=== PATIENT | male | born 1970 | race Caucasian/White ===

== ENCOUNTER 2023-10-01 08:25 | Outpatient (OUT) | payer BC, SELFPAY ==
--- NOTE | 2023-10-01 08:30 | CT_ITS ---
[address] [address] Patient Name: BRITTON HADLEY MRN: [id number] date: 1970 Sex: M Assigned Patient Location: CT Current Patient Location: LAB Accession/Order Number: [id number] Exam Date: 10/01/2023 08:47 Report Date: 10/01/2023 10:13 At the request of: KP DURAND Procedure: CT chest wo con EXAMINATION: CT chest wo con HISTORY: Lung Nodule R91.1 COMPARISON: 09/19/2021 TECHNIQUE: Multi-planar CT images were created with IV contrast. Axial, Coronal, and Sagittal images. Dose reduction techniques were achieved by using automated exposure control and/or adjustment of mA and/or kV according to patient size and/or use of iterative reconstruction technique. FINDINGS: LUNGS: Scattered subcentimeter pulmonary nodules the largest is semisolid in the right lower lobe measuring 5 mm axial image #56 PLEURA: No mass, effusion, or pneumothorax. VASCULATURE: No abnormality. ENE: No mass or adenopathy. MEDIASTINUM: No mass or adenopathy. CARDIAC: No enlargement, pericardial thickening, or significant calcification. AORTA: No aneurysm or dissection. CHEST WALL: No mass or axillary adenopathy. BONES: No bone lesion or fracture. LIMITED ABDOMEN: Mild groundglass attenuation the central mesentery, nonspecific OTHER: Negative. CT/CT chest wo con IMPRESSION: Scattered subcentimeter pulmonary nodules measuring up to 5 mm, nonspecific Lung-RADS 2 FINDINGS: Solid nodule(s): <6 mm or new <4 mm; part solid nodule(s) <6 mm total diameter on baseline screening; nonsolid nodule(s) (GGN): <20 mm or greater than/equal to 20 mm and unchanged or slowly growing; category 3 or 4 nodules unchanged for greater than/equal to 3 months. MANAGEMENT: Continue annual screening with LDCT in 12 months. Electronically authenticated by: AKBAR CRESPO Date: 10/01/2023 10:13
== END 2023-10-01 08:26 | disposition home or self-care (01) ==
LOC: CT 08:25
PROVIDERS: PCP Family Medicine; Visit Provider Family Medicine
DX: Z00.00 Encounter for general adult medical examination without abnormal findings (principal); R91.8 Other nonspecific abnormal finding of lung field
CPT/HCPCS: 36415; 71250; 80053; 80061; 85025

== ENCOUNTER 2023-10-01 08:56 | Outpatient (OUT) | payer BC, SELFPAY ==
[2023-10-01 09:31] LABS: Basophils Percent Auto 0.6 % (0.2-2.0); Eosinophils Absolute Auto 0.1 10^3/uL (0.0-0.7); Eosinophils Percent Auto 2.2 % (0.9-7.0); Hematocrit 45.1 % (42.0-54.0); Immature Granulocytes Abs Auto 0.01 10^3/uL (0.00-0.03); Immature Granulocytes Pct Auto 0.2 % (0.0-0.5); Lymphocytes Absolute Auto 1.6 10^3/uL (1.2-3.8); Lymphocytes Percent Auto 31.1 % (20.5-60.0); Mean Corpuscular HGB Conc 33.3 g/dL (29.9-35.2); Mean Corpuscular Hemoglobin 28.5 pg (25.9-34.0); Mean Corpuscular Volume 85.6 fL (80.0-94.0); Mean Platelet Volume 8.6 fL (9.5-13.5); Monocytes Absolute Auto 0.4 10^3/uL (0.3-0.8); Monocytes Percent Auto 6.9 % (1.7-12.0); Platelet Count 285 10^3/uL (150-450); Red Blood Count 5.27 10^6/uL (4.70-6.10); Red Cell Distribution Width 12.6 % (11.0-15.0); White Blood Count 5.1 10^3/uL (4.0-11.0)
[2023-10-01 12:33] LABS: Alanine Aminotransferase 38 U/L (16-63); Albumin Globulin Ratio 1.2; Albumin Level 3.8 g/dL (3.4-5.0); Alkaline Phosphatase 58 U/L (46-116); Anion Gap 11.2; Aspartate Amino Transferase 19 U/L (15-37); BUN Creatinine Ratio 13.2; Bilirubin Total 0.5 mg/dL (0.2-1.0); Chloride 104 mmol/L (98-107); Chol HDL Ratio 4.8; Cholesterol 225 mg/dL (<=200); Estimated GFR (African America >60 (>=60); Estimated GFR (Non-African Ame >60 (>=60); Globulin 3.3 g/dL; Glucose 95 mg/dL (74-106); HDL Cholesterol 47 mg/dL (40-60); Potassium 4.2 mmol/L (3.5-5.1); Sodium 142 mmol/L (136-145); Total Protein 7.1 g/dL (6.4-8.2); Triglycerides 128 mg/dL (<=150); VLDL CHOLESTEROL 25.6 mg/dL
== END 2023-10-01 08:57 | disposition home or self-care (01) ==
LOC: LAB 08:58
PROVIDERS: PCP Family Medicine; Visit Provider Family Medicine
DX: Z00.00 Encounter for general adult medical examination without abnormal findings (principal)
CPT/HCPCS: 36415; 80053; 80061; 85025

== ENCOUNTER 2024-08-13 08:27 | Outpatient (OUT) | payer OTHER, SELFPAY ==
--- OUTSIDE RECORDS SUMMARY | 2024-08-13 08:31 | XMS_ITS | CCD ---
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 Role Phone KP TSANG Admitting Unavailable KP STANG Attending Unavailable AKBAR CRESPO V Consulting Unavailable KP TSANG Consulting Unavailable Nazario Abbott Unavailable [phone] MD Kp Tsang Primary Care Provider [phone] MD Jaycob Madison Attending Provider MD Kp Tsang Primary Care Provider [phone] MD Jaycob Madison Attending Provider MD Nazario Abbott Attending Provider [phone] Nazario Abbott Admitting Unavailabl valerio Tsang, Kp A Primary Care Unavailable Nazario Abbott Attending UnavailNazario Mendez Admitting Unavailabl e Trinh, Kp A Primary Care Unavailable Nazario Abbott Attending Unavailmeggan e Trinh, Kp A Primary Care Unavailable Nazario Abbott Attending UnavailNazario Mendez Admitting Unavailmeggan Tsang, Kp A Primary Care Unavailable Jaycob Madison Admitting Unavailable Jaycob Madison Attending Unavailable Kp Tsang A Primary Care Unavailable Jaycob Madison Admitting Unavailable Jaycob Madison Attending Unavailable Trinh, Kp A Primary Care Unavailable Nazario Abbott Attending UnavailNazario Mendez Admitting Unavailmeggan e Trinh, Kp A Primary Care Unavailable Nazario Abbott Attending UnavailNazario Mendez Admitting Unavailabl e Allergies Allergy Classification Reported Allergen(s) Allergy Type Date of Onset Reaction(s) Facility (1 source) egg extract Drug Allergy 11-08-2013 [facility] Repository Medications Current Medications Medication Drug Class(es) Dates Sig (Normalized) Sig (Original) omeprazole 20 mg delayed release oral capsule (9 sources) Proton Pump Inhibitor Start: 03-21-2022 take 20 mg by mouth once daily Omeprazole Active 20 MG PO Daily March 20, 2022 11:00pm [facility] [id number] UNIT (1 source) Start: 08-21-2022 take 2 capsules by mouth three times daily [facility] [id number] UNIT 2 CAPSULES Orally THREE TIMES A DAY for 30 days Jul, Active Problems Problem Classification Problem Date Documented Da te Episodic/Chronic Abdominal hernia (5 sources) Hiatal hernia; Translations: [Diaphragmatic hernia without obstruction or gangrene] Episodic Abdominal pain (2 sources) Unspecified abdominal pain; Translations: [Unspecified abdominal pain] Onset: 2 Episodic Esophageal disorders (11 sources) Gastroesophageal reflux disease; Translations: [Gastro-esophageal reflux disease without esophagitis] Onset: 2 Resolved: 2 Chronic Gastritis and duodenitis (5 sources) Atrophic gastritis; Translations: [Unspecified chronic gastritis without bleeding] Chronic Gastritis and duodenitis (4 sources) Gastritis; Translations: [Gastritis, unspecified, without bleeding] Episodic Other gastrointestinal disorders (3 sources) Irritable bowel syndrome; Translations: [Irritable bowel syndrome without diarrhea] Chronic Other gastrointestinal disorders (1 source) Irritable bowel syndrome without diarrhea Chronic Other gastrointestinal disorders (6 sources) Diarrhea, unspecified; Translations: [Diarrhea, unspecified] Onset: 2 Resolved: 2 Episodic Other gastrointestinal disorders (4 sources) Diarrhea; Translations: [Diarrhea, unspecified] Episodic Other lower respiratory disease (4 sources) Other nonspecific abnormal finding of lung field; Translations: [OTH NONSPECIFIC ABN FIND LNG FIELD] Onset: 9 Episodic Other screening for suspected conditions (not mental disorders or infectious disease) (4 sources) Computed tomography result abnormal; Translations: [Abnormal findings on diagnostic imaging of other specified body structures] Chronic Pancreatic disorders (not diabetes) (10 sources) Pancreatic insufficiency; Translations: [Other specified diseases of pancreas] Onset: 2 Resolved: 2 Episodic Respiratory failure; insufficiency; arrest (adult) (1 source) Respiratory failure; insufficiency; arrest (adult); Translations: [Exocrine pancreatic insufficiency] Onset: 2 Spondylosis; intervertebral disc disorders; other back problems (1 source) Spondylosis without myelopathy or radiculopathy, thoracic region; Translations: [SPONDYLS W/O MYELO-/RADICULOP THOR] Onset: 9 Chronic Spondylosis; intervertebral disc disorders; other back problems (3 sources) Pain in thoracic spine; Translations: [Cervicalgia] Onset: 9 Episodic Unclassified (1 source) Low back pain, unspecified; Translations: [Low back pain, unspecified] Onset: 2 Unclassified (1 source) K86.89 - Other specified diseases of pancreas; Translations: [K86.89 - Other specified diseases of pancreas] Onset: 2 Unclassified (1 source) K58.0 - Irritable bowel syndrome with diarrhea; Translations: [K58.0 - Irritable bowel syndrome with diarrhea] Onset: 2 Unclassified (1 source) Z01.812 - Encounter for preprocedural laboratory examination; Translations: [Z01.812 - Encounter for preprocedural laboratory examination] Onset: 2 Results Test Name Value Interpretation Reference Range Facility Elastase.pancreatic [Mass/ma ss] in StoolOrdered By: Nazario Abbott on 08-24-2022 Elastase.pancreatic (Stl) [Mass/Mass] 197 >200 [facility] Comment on above: Result Units: ug Suni st./g Severe Pancreatic Insufficiency: <100 Moderate Pancreatic Insufficiency: 100 - 200 Normal: >200Performed at: [facility] [address] [id number] Director: Jevon Arguelles MD, Phone: [phone] Pancreatic Elastase, Stoolon 08-24-2022 Pancreatic Elastase, Stool 197 Low >200 [facility] Comment on above: Order Comment: Reaso n for Exam Exocrine pancreatic insufficiency Result Comment: Resu lt Units: ug Elast./g Severe Pancreatic Insufficiency: <100 Moderate Pancreatic Insufficiency: 100 - 200 Normal: >200 Performed at: [facility] [address] [id number] [employer] Engineering Teacher: Jevon Arguelles MD, Phone: [phone] PERFORMED BY: [facility] [address] [place] [address] PATHOLOGIST ENVIRONMENTAL DEPARTMENT MANAGER ILA PETERSON M.D. Performed By: #### E LASTASE STOOL ####[facility] , Basophils Auto (Bld) [#/Vol] Ordered By: Jaycob Madison on 07-31-2022 Basophils (Bld) [#/Vol] 0.0 10*3/uL 0.0-0.2 [facility] Basophils/100 WBC Auto (Bld) Ordered By: Jaycob Madison on 07-31-2022 Basophils/100 WBC (Bld) 0.7 % . [facility] Blood hemoglobin measurement (mass/volume)Ordered By: Jaycob Madison on 07-31-2022 Hemoglobin (Bld) [Mass/Vol] 15.1 g/dL 13.0-17.0 [facility] Blood leukocytes automated c ount (number/volume)Ordered By: Jaycob Madison on 07-31-2022 WBC (Bld) [#/Vol] 4.7 10*3/uL 4.5-11.0 [facility] Body fluid albumin measureme nt (mass/volume)Ordered By: Jaycob Madison on 07-31-2022 Albumin (Body fld) [Mass/Vol] 4.1 g/dL 3.2-5.5 [facility] C reactive protein [Mass/vol ume] in Serum or PlasmaOrdered By: Jaycob Madison on 07-31-2022 CRP [Mass/Vol] 0.7 mg/dL 0.0-1.0 [facility] C-Reactive Proteinon 022 C-Reactive Protein 0.7 mg/dL Normal 0.0-1.0 [facility] Comment on above: Result Comment: PERF ORMED BY: [facility] [address] [place] [address] PATHOLOGIST ENVIRONMENTAL DEPARTMENT MANAGER ILA PETERSON M.D. Performed By: #### C RP, CMP, CBC, ESR #### [place] [id number] [facility] Complete Blood Count Auto Di ffon 07-31-2022 Basophils (Bld) [#/Vol] 0.0 10*3/uL Normal 0.0-0.2 [facility] Comment on above: Performed By: #### C RP, CMP, CBC, ESR #### [address] Basophils/100 WBC (Bld) 0.7 % Normal . [facility] Comment on above: Performed By: #### C RP, CMP, CBC, ESR #### [address] Eosinophils (Bld) [#/Vol] 0.1 10*3/uL Normal 0.0-0.45 [facility] Comment on above: Performed By: #### C RP, CMP, CBC, ESR #### [address] Eosinophils/100 WBC (Bld) 1.4 % Normal . [facility] Comment on above: Performed By: #### C RP, CMP, CBC, ESR #### [address] Erythrocyte distribution width (RBC) [Ratio] 13.4 % Normal 12.0-14.8 [facility] Comment on above: Performed By: #### C RP, CMP, CBC, ESR #### [address] Hematocrit (Bld) [Volume fraction] 44.6 % Normal 38.8-50.0 [facility] Comment on above: Performed By: #### C RP, CMP, CBC, ESR #### [address] Hemoglobin (Bld) [Mass/Vol] 15.1 g/dL Normal 13.0-17.0 [facility] Comment on above: Performed By: #### C RP, CMP, CBC, ESR #### [address] Lymphocytes (Bld) [#/Vol] 1.3 10*3/uL Normal 1.00-4.8 [facility] Comment on above: Performed By: #### C RP, CMP, CBC, ESR #### [facility] [address] Lymphocytes/100 WBC (Bld) 26.5 % Normal . [facility] Comment on above: Performed By: #### C RP, CMP, CBC, ESR #### [facility] [address] MCH (RBC) [Entitic mass] 29.0 pg Normal 27.5-35.2 [facility] Comment on above: Performed By: #### C RP, CMP, CBC, ESR #### [address] MCV (RBC) [Entitic vol] 85.7 fL Normal 83.5-101 [facility] Comment on above: Performed By: #### C RP, CMP, CBC, ESR #### [address] Mean Corpuscular HGB Conc 33.9 g/dL Normal 32.5-35.6 [facility] Comment on above: Performed By: #### C RP, CMP, CBC, ESR #### [place] [address] [place] Monocytes (Bld) [#/Vol] 0.2 10*3/uL Normal 0.0-0.8 [facility] Comment on above: Performed By: #### C RP, CMP, CBC, ESR #### [place] [address] [place] Monocytes/100 WBC (Bld) 4.8 % Normal . [facility] Comment on above: Performed By: #### C RP, CMP, CBC, ESR #### [place] [address] [place] Neutrophils (Bld) [#/Vol] 3.2 10*3/uL Normal 1.8-7.7 [facility] Comment on above: Performed By: #### C RP, CMP, CBC, ESR #### [place] [address] [place] Neutrophils/100 WBC (Bld) 66.6 % Normal . [facility] Comment on above: Performed By: #### C RP, CMP, CBC, ESR #### [address] Nucleated RBC/100 WBC (Bld) [Ratio] 0.2 % Normal 0-0.5 [facility] Comment on above: Performed By: #### C RP, CMP, CBC, ESR #### [address] Platelet mean volume (Bld) [Entitic vol] 6.8 fL Normal 6.6-10.1 [facility] Comment on above: Performed By: #### C RP, CMP, CBC, ESR #### [address] Platelets (Bld) [#/Vol] 331 10*3/uL Normal 150-450 [facility] Comment on above: Performed By: #### C RP, CMP, CBC, ESR #### [address] RBC (Bld) [#/Vol] 5.21 10*6/uL Normal 3.90-5.60 [facility] Comment on above: Performed By: #### C RP, CMP, CBC, ESR #### [address] WBC (Bld) [#/Vol] 4.7 10*3/uL Normal 4.5-11.0 [facility] Comment on above: Performed By: #### C RP, CMP, CBC, ESR #### [address] Comprehensive Metabolic Pane willi 07-31-2022 Albumin [Mass/Vol] 4.1 g/dL Normal 3.2-5.5 [facility] Comment on above: Performed By: #### C RP, CMP, CBC, ESR #### [address] Albumin/Globulin [Mass ratio] 1.6 {ratio} Normal [facility] Comment on above: Performed By: #### C RP, CMP, CBC, ESR #### [facility] [address] [place] [id number] [place] ALP [Catalytic activity/Vol] 53 U/L Normal 32-92 [facility] Comment on above: Performed By: #### C RP, CMP, CBC, ESR #### [facility] [address] [place] [id number] [facility] ALT [Catalytic activity/Vol] 28 U/L Normal 10-60 [facility] Comment on above: Performed By: #### C RP, CMP, CBC, ESR #### [facility] [address] [place] [id number] [facility] Anion gap [Moles/Vol] 11.6 mmol/L Normal 6.0-15.0 [facility] Comment on above: Performed By: #### C RP, CMP, CBC, ESR #### [facility] [address] AST [Catalytic activity/Vol] 23 U/L Normal 10-42 [facility] Comment on above: Performed By: #### C RP, CMP, CBC, ESR #### [facility] [address] [place] [address] [place] Bilirubin [Mass/Vol] 0.6 mg/dL Normal 0.3-1.2 [facility] Comment on above: Performed By: #### C RP, CMP, CBC, ESR #### [facility] [address] [place] [address] [place] Calcium [Mass/Vol] 9.5 mg/dL Normal 8.2-10.2 [facility] Comment on above: Performed By: #### C RP, CMP, CBC, ESR #### [facility] [address] [place] [address] [place] Chloride [Moles/Vol] 106 mmol/L Normal 95-114 [facility] Comment on above: Performed By: #### C RP, CMP, CBC, ESR #### [facility] [address] [place] [id number] [place] CO2 [Moles/Vol] 25.9 mmol/L Normal 22.0-30.0 [facility] Comment on above: Performed By: #### C RP, CMP, CBC, ESR #### [facility] [address] Creatinine [Mass/Vol] 1.02 mg/dL Normal 0.64-1.27 [facility] Comment on above: Performed By: #### C RP, CMP, CBC, ESR #### [facility] [address] Estimated GFR ( Lucy > 60 [facility] Comment on above: Result Comment: GFR estimated reference range: According to KDOQI guidelines, <60 ml/min/1.73m2 is sufficient to diagnose a patient with chronic kidney disease. Performed By: #### C RP, CMP, CBC, ESR #### [facility] [address] Estimated GFR (Non- Am > 60 [facility] Comment on above: Performed By: #### C RP, CMP, CBC, ESR #### [facility] [address] Globulin (S) [Mass/Vol] 2.5 g/dL Normal [facility] Comment on above: Performed By: #### C RP, CMP, CBC, ESR #### [facility] [address] Glucose [Mass/Vol] 119 mg/dL High 70-100 [facility] Comment on above: Result Comment: [place] Glucose Reference Range is dependent on time and content of last meal. Glucose of more than 200 mg/dL in a nonstressed, ambulatory subject supports the diagnosis of Diabetes Mellitus. ADA recommended reference range Performed By: #### C RP, CMP, CBC, ESR #### [facility] [address] Potassium [Moles/Vol] 4.5 mmol/L Normal 3.5-5.1 [facility] Comment on above: Performed By: #### C RP, CMP, CBC, ESR #### [facility] [address] Protein [Mass/Vol] 6.6 g/dL Normal 6.1-7.9 [facility] Comment on above: Performed By: #### C RP, CMP, CBC, ESR #### [facility] [address] Sodium [Moles/Vol] 139 mmol/L Normal 136-146 [facility] Comment on above: Performed By: #### C RP, CMP, CBC, ESR #### [facility] [address] Urea nitrogen [Mass/Vol] 13 mg/dL Normal 9-23 [facility] Comment on above: Performed By: #### C RP, CMP, CBC, ESR #### [facility] [address] Creatinine and Glomerular fi ltration rate.predicted panel (S/P/Bld)Ordered By: Jaycob Madison on 07-31-2022 Creatinine [Mass/Vol] 1.02 mg/dL 0.64-1.27 [facility] Eosinophils Auto (Bld) [#/Vo l]Ordered By: Jaycob Madison on 07-31-2022 Eosinophils (Bld) [#/Vol] 0.1 10*3/uL 0.0-0.45 [facility] Eosinophils/100 WBC Auto (Bl d)Ordered By: Jaycob Madison on 07-31-2022 Eosinophils/100 WBC (Bld) 1.4 % . [facility] Erythrocyte Sedimentation Ra tracy 07-31-2022 ESR (Bld) [Velocity] 3 mm/h Normal 0-19 [facility] Comment on above: Result Comment: PERF ORMED BY: [place] [address] PATHOLOGIST ENVIRONMENTAL DEPARTMENT MANAGER ILA PETERSON M.D. Performed By: #### C RP, CMP, CBC, ESR #### [address] Erythrocyte distribution wid th Auto (RBC) [Ratio]Ordered By: Jaycob Madison on 07-31-2022 Erythrocyte distribution width (RBC) [Ratio] 13.4 % 12.0-14.8 [facility] Erythrocyte sedimentation ra te by Photometric methodOrdered By: Jaycob Madison on 07-31-2022 ESR Photometric method (Bld) [Velocity] 3 mm/hr 0-19 [facility] Estimated glomerular filtrat ion rate (GFR) non- AmericanOrdered By: Jaycob Madison on 07-31-2022 GFR/1.73 sq M.predicted among non-blacks MDRD (S/P/Bld) [Vol rate/Area] > 60 mL/Min [facility] Globulin Calc (S) [Mass/Vol] Ordered By: Jaycob Madison on 07-31-2022 Globulin (S) [Mass/Vol] 2.5 g/dL [facility] Hematocrit Auto (Bld) [Volum e fraction]Ordered By: Jaycob Madison on 07-31-2022 Hematocrit (Bld) [Volume fraction] 44.6 % 38.8-50.0 [facility] Laboratory - Hematology and Cell countsOrdered By: Jaycob Madison on 07-31-2022 Nucleated RBC/100 WBC (Bld) [Ratio] 0.2 % 0-0.5 [facility] Lymphocytes Auto (Bld) [#/Vo l]Ordered By: Jaycob Madison on 07-31-2022 Lymphocytes (Bld) [#/Vol] 1.3 10*3/uL 1.00-4.8 [facility] Lymphocytes/100 WBC Auto (Bl d)Ordered By: Jaycob Madison on 07-31-2022 Lymphocytes/100 WBC (Bld) 26.5 % . [facility] MCH Auto (RBC) [Entitic mass ]Ordered By: Jaycob Madison on 07-31-2022 MCH (RBC) [Entitic mass] 29.0 pg 27.5-35.2 [facility] MCHC Auto (RBC) [Mass/Vol]Or dered By: Jaycob Madison on 07-31-2022 MCHC (RBC) [Mass/Vol] 33.9 g/dL 32.5-35.6 [facility] MCV Auto (RBC) [Entitic vol] Ordered By: Jaycob Madison on 07-31-2022 MCV (RBC) [Entitic vol] 85.7 fL 83.5-101 [facility] Monocytes Auto (Bld) [#/Vol] Ordered By: Jaycob Madison on 07-31-2022 Monocytes (Bld) [#/Vol] 0.2 10*3/uL 0.0-0.8 [facility] Monocytes/100 WBC Auto (Bld) Ordered By: Jaycob Madison on 07-31-2022 Monocytes/100 WBC (Bld) 4.8 % . [facility] Neutrophils Auto (Bld) [#/Vo l]Ordered By: Jaycob Madison on 07-31-2022 Neutrophils (Bld) [#/Vol] 3.2 10*3/uL 1.8-7.7 [facility] Neutrophils/100 WBC Auto (Bl d)Ordered By: Jaycob Madison on 07-31-2022 Neutrophils/100 WBC (Bld) 66.6 % . [facility] No Panel InformationOrdered By: Jaycob Madison on 07-31-2022 Estimated GFR () > 60 mL/Min [facility] Comment on above: GFR estimated refere nce range: According to KDOQI guidelines, <60 ml/min/1.73m2 is sufficient to diagnose a patient with chronic kidney disease. Pharmacy Creatinine Clearance (Chem N/A [facility] Platelet mean volume Auto (B ld) [Entitic vol]Ordered By: Jaycob Madison on 07-31-2022 Platelet mean volume (Bld) [Entitic vol] 6.8 fL 6.6-10.1 [facility] Platelets Auto (Bld) [#/Vol] Ordered By: Jaycob Madison on 07-31-2022 Platelets (Bld) [#/Vol] 331 10*3/uL 150-450 [facility] Protein [Mass/volume] in Ser um or PlasmaOrdered By: Jaycob Madison on 07-31-2022 Protein [Mass/Vol] 6.6 g/dL 6.1-7.9 [facility] RBC Auto (Bld) [#/Vol]Ordere d By: Jaycob Madison on 07-31-2022 RBC (Bld) [#/Vol] 5.21 10*6/uL 3.90-5.60 [facility] Serum or plasma alanine beltran otransferase measurement without P-5'-P (enzymatic activiOrdered By: Jaycob Madison on 07-31-2022 ALT No additional P-5'-P [Catalytic activity/Vol] 28 U/L 10-60 [facility] Serum or plasma albumin/glob ulin mass ratioOrdered By: Jaycob Madison on 07-31-2022 Albumin/Globulin [Mass ratio] 1.6 {ratio} [facility] Serum or plasma alkaline ivis sphatase measurement (enzymatic activity/volume)Ordered By: Jaycob Madison on 07-31-2022 ALP [Catalytic activity/Vol] 53 U/L 32-92 [facility] Serum or plasma anion gap de terminationOrdered By: Jaycob Madison on 07-31-2022 Anion gap [Moles/Vol] 11.6 mmol/L 6.0-15.0 [facility] Serum or plasma aspartate am inotransferase measurement (enzymatic activity/volume)Ordered By: Jaycob Madison on 07-31-2022 AST [Catalytic activity/Vol] 23 U/L 10-42 [facility] Serum or plasma calcium jameel urement (mass/volume)Ordered By: Jaycob Madison on 07-31-2022 Calcium [Mass/Vol] 9.5 mg/dL 8.2-10.2 [facility] Serum or plasma chloride [place] surement (moles/volume)Ordered By: Jaycob Madison on 07-31-2022 Chloride [Moles/Vol] 106 mmol/L 95-114 [facility] Serum or plasma glucose jameel urement (mass/volume)Ordered By: Jaycob Madison on 07-31-2022 Glucose [Mass/Vol] 119 mg/dL 70-100 [facility] Comment on above: ADA recommended refe rence range Random Glucose Reference Range is dependent on time and content of last meal. Glucose of more than 200 mg/dL in a nonstressed, ambulatory subject supports the diagnosis of Diabetes Mellitus. ADA recommended refe rence rangeRandom Glucose Reference Range is dependent on time and content of last meal. Glucose of more than 200 mg/dL in a nonstressed, ambulatory subject supports the diagnosis of Diabetes Mellitus. Serum or plasma potassium me asurement (moles/volume)Ordered By: Jaycob Madison on 07-31-2022 Potassium [Moles/Vol] 4.5 mmol/L 3.5-5.1 [facility] Serum or plasma sodium measu rement (moles/volume)Ordered By: Jaycob Madison on 07-31-2022 Sodium [Moles/Vol] 139 mmol/L 136-146 [facility] Serum or plasma total biliru bin measurement (mass/volume)Ordered By: Jaycob Madison on 07-31-2022 Bilirubin [Mass/Vol] 0.6 mg/dL 0.3-1.2 [facility] Serum or plasma total carbon dioxide measurement (moles/volume)Ordered By: Jaycob Madison on 07-31-2022 CO2 [Moles/Vol] 25.9 mmol/L 22.0-30.0 [facility] Serum or plasma urea nitroge n measurement (mass/volume)Ordered By: Jaycob Madison on 07-31-2022 Urea nitrogen [Mass/Vol] 13 mg/dL 08-17 [facility] XR hips BI 4V adulton 2021 XR hips BI 4V adult [facility] [place] [address] XRay Report Signed Patient: Britton Powell MR#: [id number] 2523 : 1970 Acct:[id number] Age/Sex: 51 / M ADM Date: 07/31/22 Loc: XD Room: Type: [facility] Attending Dr: Jaycob Madison MD Copies to: Jaycob Madison MD Ordering Provider: Jaycob Madison MD Date of Service: 07/31/22 XR/XR hips BI 4V adult: HIP PAIN ([id number]) XR/XR lumbar spine min 4V*: LOW BACK PAIN ([id number]) XR/XR cervical spine 5V*: NECK PAIN CLINICAL HISTORY: Neck pain radiating to the mid back. Patient also has low back pain radiating to the hips. No injury. CERVICAL SPINE - 5 views: TECHNIQUE: AP, lateral, both oblique and odontoid views were obtained. FINDINGS: Cervicothoracic levoscoliotic curvature is noted. There is no evidence of compression fracture. There is minimal retrolisthesis of C5 with respect to adjacent vertebra. There is minor disc space narrowing at C4-5 and mild to moderate at C5-6. There is endplate spurring. Bilateral facet hypertrophy is seen. The right neuroforamen are patent. On the left, there is minor bony foraminal encroachment at C3-4. The atlantoaxial relationship is maintained. There is no prevertebral soft tissue swelling. XR/XR cervical spine 5V* IMPRESSION: MILD DEGENERATIVE CHANGE. LUMBAR SPINE - 6 views COMPARISON: CT 04/05/2022 AP, lateral, both oblique and AP and lateral coned-down views of the lumbosacral junction were obtained. There is subtle rotatory levoscoliotic curvature. No fractures or displacement are seen. There is minimal disc space narrowing at the lumbosacral junction. There is no significant hypertrophy. No paraspinal soft tissue abnormalities are noted. IMPRESSION: NO ACUTE BONY FINDINGS. ADULT BILATERAL HIPS - 2 views each COMPARISON: CT abdomen 04/05/2022 AP and frog-lateral views were obtained. There is no acute fracture or dislocation. The joint spaces are symmetric. No significant hypertrophy is identified. No soft tissue abnormalities are noted. IMPRESSION: NO ACUTE BONY FINDINGS. Impression dictated by: Cris Sykes M.D.07/31/2022 4:37 PM Dictation Location: [place] [address] Transcribed By: [facility] 07/31/22 1637 Dictated By: Cris Sykes MD 07/31/22 163 Signed By: 07/31/22 [address] [facility] [address] abdomen w conon 2 CT abdomen w con [facility] [place] [address] CT Scan Report Signed Patient: Britton Powell MR#: [id number] : 1970 Acct:[id number] Age/Sex: 51 / M ADM Date: 04/05/22 Loc: CT Room: Type: [facility] CLI Attending Dr: Nazario Abbott MD Ordering Provider: Nazario Abbott MD Date of Service: 04/05/22 CT/CT abdomen w con: Pancreatic insufficiency Copies to: Nazario Abbott MD CT ABDOMEN WITH INTRAVENOUS CONTRAST: CLINICAL HISTORY: Pancreatic insufficiency. COMPARISON: None TECHNIQUE: Spiral images were obtained through the abdomen following the administration of intravenous contrast. This CT exam was performed using one or more following dose reduction techniques: Automated exposure control, adjustment of the mA and/or kV according to patient size, or use of iterative reconstruction technique. FINDINGS: Lung Bases: No acute findings. Minimal scarring. Organs: Liver gallbladder spleen pancreas and adrenal glands all appear unremarkable. No enhancing renal mass or hydronephrosis. Abdominal aorta appears normal in caliber. GI: Stomach is grossly unremarkable. Visualized small bowel and colon demonstrate no acute process. Peritoneum/Retroperito neum:Mild haziness involving the mesenteric fat. No free air, free fluid or lymphadenopathy. Abd wall/Bones: Abdominal wall demonstrates no acute findings. Osseous structures demonstrate degenerative change. 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 Repeat CT in 6 months is recommended to confirm stability. Impression dictated by: Pete Villegas Jr., Cecilia04/05/2022 2:49 PM Dictation Location: [place] [address] Transcribed By: [facility] 04/05/22 144 Dictated By: Pete Villegas Jr, DO 04/05/22 1447 Signed By: 04/05/22 144 [facility] 03-22-2022 L -- ---- Specimen: [id number] Received: 03/22/22 Status: OMAR Lopez Num: [id number] Spec Type: Surgical Subm Dr: Nazario Abbott MD Tissues: A Duodenum - Biopsy (DUODENUM) B Stomach - Biopsy/Polyp (ANTRUM) C Small Intestine - Biopsy/Polyp (SMALL BOWEL) D Colon Biopsy (COLON) Procedures: HE Stain/8, Gross/Micro L4/4 ---- Patient Age/Sex Location Account Attending Physician ---- Britton Powell/[facility] [id number] Nazario Abbott MD ---- SPEC NUM: [id number] RECD: 03/22/22 STATUS: OMAR LOPEZ NUM: [id number] LILIAN: 03/22/22- [facility] DR: Nazario Abbott MD ENTERED: 03/22/[address] [facility] [address]: CALEB TYPE: Surgical DEPT: S ORDERED: HE Stain/8, Gross/Micro L4/4 ORDERED: HE Stain/8, Gross/Micro L4/4 Pathological Diagnosis A. Duodenum, biopsy: - Small intestinal mucosa showing focal mild increase in intraepithelial lymphocytes, nonspecific - Preserved villous and crypt architecture - Negative for active inflammation B. Stomach, antrum, biopsy: - Mild chronic inactive gastritis - Negative for H. pylori microorganisms C. Small intestine, biopsy: - Small intestinal mucosa showing no specific pathologic changes - Preserved villous and crypt architecture - Negative for active inflammation D. Colon, biopsy: - Colonic mucosa showing no specific pathologic changes - No evidence of microscopic colitis ---- Specimen: [id number] Received: 03/22/22 Status: OMAR Lopez Num: [id number] Spec Type: Surgical Subm Dr: Nazario Abbott MD Tissues: A Duodenum - Biopsy (DUODENUM) B Stomach - Biopsy/Polyp (ANTRUM) C Small Intestine - Biopsy/Polyp (SMALL BOWEL) D Colon Biopsy (COLON) Procedures: HE Stain/8, Gross/Micro L4/4 ---- Patient: Britton Powell [id number] (Continued) ---- Specimen: [id number] Received: 03/22/22 (Continued) Signed (signature on file) Ila Peterson MD 03/23/22 9280 ---- Specimen: [id number] Received: 03/22/22 Status: OMAR Lopez Num: [id number] Spec Type: Surgical Subm Dr: Nazario Abbott MD Tissues: A Duodenum - Biopsy (DUODENUM) B Stomach - Biopsy/Polyp (ANTRUM) C Small Intestine - Biopsy/Polyp (SMALL BOWEL) D Colon Biopsy (COLON) Procedures: HE Stain/8, Gross/Micro L4/4 ---- Patient: Britton Powell [id number] (Continued) ---- Specimen: [id number] Received: 03/22/22 (Continued) Clinical Information Dysphagia Gross Description A. Received in 10% neutral buffered formalin, labeled with the patient's name, number and duodenum biopsy are multiple martinez tissue fragments aggregating 0.6 x 0.5 x 0.2 cm. Entirely submitted in one cassette labeled A1. (/LORNA) B. Received in 10% neutral buffered formalin, labeled with the patient's name, number and antrum biopsy is a 0.4 cm martinez tissue fragment. Entirely submitted in one cassette labeled B1. (OLVIN/LORNA) C. Received in 10% neutral buffered formalin, labeled with the patient's name, number and small bowel biopsy is a 0.5 cm martinez tissue fragment. Entirely submitted in one cassette labeled C1. (OLVIN/LORNA) D. Received in 10% neutral buffered formalin, labeled with the patient's name, number and colon biopsy are multiple martinez tissue fragments aggregating 0.6 x 0.5 x 0.2 cm. Entirely submitted in one cassette labeled D1. (OLVIN/JS) Microscopic Description A. Two glass slides with H E stained material have been examined. The microscopic findings support the above pathologic diagnosis. B. Two glass slides with H E stained material have been examined. The microscopic findings support the above pathologic diagnosis. Immunohistochemical stain for H. pylori, with appropriate controls, has been requested and examined after reviewing H E sections. H. pylori stain is negative for microorganisms. C. Two glass slides with H E stained material have been examined. The microscopic findings support the above pathologic diagnosis. D. Two glass slides with H E stained material have been examined. The microscopic findings suppor (more content not included)... Normal [facility] Bowel Disorders Cascadeon Atypical pANCA Negative Normal Negative [facility] Comment on above: Order Comment: Reaso n for Exam Diarrhea;GERD (gastroesophageal reflux disease) Performed By: #### B OWEL CASC, CALPROTECT, ELASTASE STOOL ####[facility] ,#### CMP, CRP, THYROID SC, LACTO SWBC, CBC, ESR ####[facility] [id number] [address] Bowel Disorders Grady Negative Normal Negative [facility] Comment on above: Order Comment: Reaso n for Exam Diarrhea;GERD (gastroesophageal reflux disease) Performed By: #### B OWEL CASC, CALPROTECT, ELASTASE STOOL ####[facility] ,#### CMP, CRP, THYROID SC, LACTO SWBC, CBC, ESR ####[facility] [id number] [address] Note Normal . [facility] Comment on above: Order Comment: Reaso n for Exam Diarrhea;GERD (gastroesophageal reflux disease) Result Comment: Sugg estive of Crohn's disease. Subsequent testing with the Crohn's Disease Prognostic Profile (330696) that includes antiglycan antibodies AMCA, ALCA, ACCA, and Ovidio may aid in the differentiation of clinical forms of CD and prognosis of disease progression. Performed at: - [facility], [place], [place] [id number] Plastics Engineering Teacher: Jevon Arguelles MD, Phone: [phone] PERFORMED BY: [facility] [address] [place] [address] PATHOLOGIST ENVIRONMENTAL DEPARTMENT MANAGER ILA PETERSON M.D. Performed By: #### B OWEL CASC, CALPROTECT, ELASTASE STOOL ####[facility] ,#### CMP, CRP, THYROID SC, LACTO SWBC, CBC, ESR ####[place] [id number] [address] Saccharomyces cerevisiae, IgG 27.6 High 0.0-24.9 [facility] Comment on above: Order Comment: Reaso n for Exam Diarrhea;GERD (gastroesophageal reflux disease) Result Comment: Nega tive <20.0 Equivocal 20.1 - 24.9 Positive >or= 25.0 Performed By: #### B OWEL CASC, CALPROTECT, ELASTASE STOOL ####[facility] ,#### CMP, CRP, THYROID SC, LACTO SWBC, CBC, ESR ####[place] [id number] [address] C-Reactive Proteinon 022 C-Reactive Protein 2.0 mg/dL High 0.0-1.0 [facility] Comment on above: Order Comment: Reaso n for Exam Diarrhea;GERD (gastroesophageal reflux disease) Performed By: #### B OWEL CASC, CALPROTECT, ELASTASE STOOL ####[facility] ,#### CMP, CRP, THYROID SC, LACTO SWBC, CBC, ESR ####[place] [id number] [address] COVID-19 FRMCon 03-20-2022 SARS-CoV-2 (COVID-19) RNA YNES+probe Ql (Unsp spec) Negative Normal Negative [facility] Comment on above: Order Comment: Healt hcare Worker?: N Result Comment: Testing for SARS-CoV-2 by RT-PCR This test was developed and its performance characteristics determined by [employer] ([place]) and validated at the [facility]. This test has not been FDA cleared or approved. This test has been authorized by FDA under an Emergency Use Authorization (EUA). This test has been validated in accordance with the FDA's Guidance Document (Policy for Diagnostics Testing in Laboratories Certified to Perform High Complexity Testing under CLIA prior to Emergency Use Authorization for Coronavirus Disease-2019 during the Public Health Emergency) issued on February 25, 2020. This test is only authorized for the duration of time the declaration that circumstances exist justifying the authorization of the emergency use of in vitro diagnostic tests for detection of SARS-CoV-2 virus and/or diagnosis of COVID-19 infection under section 564(b)(1) of the Act, 21 U.S.C. 360bbb-3(b)(1), unless the authorization is terminated or revoked sooner. PERFORMED BY: [facility] [address] [place] [address] PATHOLOGIST ENVIRONMENTAL DEPARTMENT MANAGER ILA PETERSON M.D. Performed By: #### C OVID 19 [facility] ####[facility] [id number] [place] [address] [facility] Calprotectin, Fecalon 2021 Calprotectin, Fecal 41 Normal 0-120 [facility] Comment on above: Order Comment: Reaso n for Exam Diarrhea;GERD (gastroesophageal reflux disease) Result Comment: Conc entration Interpretation Follow-Up <16 - 50 ug/g Normal None >50 -120 ug/g Borderline Re-evaluate in 4-6 weeks >120 ug/g Abnormal Repeat as clinically indicated Performed at: - [facility] [address] [id number] Plastics Engineering Teacher: Jevon Arguelles MD, Phone: [phone] PERFORMED BY: [facility] [address] [place] [id number] PATHOLOGIST ENVIRONMENTAL DEPARTMENT MANAGER ILA PETERSON M.D. Performed By: #### B OWEL CASC, CALPROTECT, ELASTASE STOOL ####[facility] ,#### CMP, CRP, THYROID SC, LACTO SWBC, CBC, ESR ####[facility] [id number] Complete Blood Count Auto Di ffon 03-20-2022 Basophils (Bld) [#/Vol] 0.0 10*3/uL Normal 0.0-0.2 [facility] Comment on above: Order Comment: Reaso n for Exam Diarrhea;GERD (gastroesophageal reflux disease) Performed By: #### B OWEL CASC, CALPROTECT, ELASTASE STOOL #### [facility] , #### CMP, CRP, THYROID SC, LACTO SWBC, CBC, ESR #### [facility] [address] Basophils/100 WBC (Bld) 0.6 % Normal . [facility] Comment on above: Order Comment: Reaso n for Exam Diarrhea;GERD (gastroesophageal reflux disease) Performed By: #### B OWEL CASC, CALPROTECT, ELASTASE STOOL #### [facility] , #### CMP, CRP, THYROID SC, LACTO SWBC, CBC, ESR #### [facility] [address] Eosinophils (Bld) [#/Vol] 0.1 10*3/uL Normal 0.0-0.45 [facility] Comment on above: Order Comment: Reaso n for Exam Diarrhea;GERD (gastroesophageal reflux disease) Performed By: #### B OWEL CASC, CALPROTECT, ELASTASE STOOL #### [facility] , #### CMP, CRP, THYROID SC, LACTO SWBC, CBC, ESR #### [facility] [address] Eosinophils/100 WBC (Bld) 1.5 % Normal . [facility] Comment on above: Order Comment: Reaso n for Exam Diarrhea;GERD (gastroesophageal reflux disease) Performed By: #### B OWEL CASC, CALPROTECT, ELASTASE STOOL #### [facility] , #### CMP, CRP, THYROID SC, LACTO SWBC, CBC, ESR #### [facility] [address] Erythrocyte distribution width (RBC) [Ratio] 13.3 % Normal 12.0-14.8 [facility] Comment on above: Order Comment: Reaso n for Exam Diarrhea;GERD (gastroesophageal reflux disease) Performed By: #### B OWEL CASC, CALPROTECT, ELASTASE STOOL #### [facility] , #### CMP, CRP, THYROID SC, LACTO SWBC, CBC, ESR #### [address] Hematocrit (Bld) [Volume fraction] 42.8 % Normal 38.8-50.0 [facility] Comment on above: Order Comment: Reaso n for Exam Diarrhea;GERD (gastroesophageal reflux disease) Performed By: #### B OWEL CASC, CALPROTECT, ELASTASE STOOL #### [facility] , #### CMP, CRP, THYROID SC, LACTO SWBC, CBC, ESR #### [address] Hemoglobin (Bld) [Mass/Vol] 14.3 g/dL Normal 13.0-17.0 [facility] Comment on above: Order Comment: Reaso n for Exam Diarrhea;GERD (gastroesophageal reflux disease) Performed By: #### B OWEL CASC, CALPROTECT, ELASTASE STOOL #### [facility] , #### CMP, CRP, THYROID SC, LACTO SWBC, CBC, ESR #### [address] Lymphocytes (Bld) [#/Vol] 1.4 10*3/uL Normal 1.00-4.8 [facility] Comment on above: Order Comment: Reaso n for Exam Diarrhea;GERD (gastroesophageal reflux disease) Performed By: #### B OWEL CASC, CALPROTECT, ELASTASE STOOL #### [facility] , #### CMP, CRP, THYROID SC, LACTO SWBC, CBC, ESR #### [address] Lymphocytes/100 WBC (Bld) 28.5 % Normal . [facility] Comment on above: Order Comment: Reaso n for Exam Diarrhea;GERD (gastroesophageal reflux disease) Performed By: #### B OWEL CASC, CALPROTECT, ELASTASE STOOL #### [facility] , #### CMP, CRP, THYROID SC, LACTO SWBC, CBC, ESR #### [facility] [address] [place] [address] MCH (RBC) [Entitic mass] 28.6 pg Normal 27.5-35.2 [facility] Comment on above: Order Comment: Reaso n for Exam Diarrhea;GERD (gastroesophageal reflux disease) Performed By: #### B OWEL CASC, CALPROTECT, ELASTASE STOOL #### [facility] , #### CMP, CRP, THYROID SC, LACTO SWBC, CBC, ESR #### [address] MCV (RBC) [Entitic vol] 85.3 fL Normal 83.5-101 [facility] Comment on above: Order Comment: Reaso n for Exam Diarrhea;GERD (gastroesophageal reflux disease) Performed By: #### B OWEL CASC, CALPROTECT, ELASTASE STOOL #### [facility] , #### CMP, CRP, THYROID SC, LACTO SWBC, CBC, ESR #### [address] Mean Corpuscular HGB Conc 33.5 g/dL Normal 32.5-35.6 [facility] Comment on above: Order Comment: Reaso n for Exam Diarrhea;GERD (gastroesophageal reflux disease) Performed By: #### B OWEL CASC, CALPROTECT, ELASTASE STOOL #### [facility] , #### CMP, CRP, THYROID SC, LACTO SWBC, CBC, ESR #### [facility] [address] [place] [address] Monocytes (Bld) [#/Vol] 0.4 10*3/uL Normal 0.0-0.8 [facility] Comment on above: Order Comment: Reaso n for Exam Diarrhea;GERD (gastroesophageal reflux disease) Performed By: #### B OWEL CASC, CALPROTECT, ELASTASE STOOL #### [facility] , #### CMP, CRP, THYROID SC, LACTO SWBC, CBC, ESR #### [facility] [address] [place] [address] [place] Monocytes/100 WBC (Bld) 8.5 % Normal . [facility] Comment on above: Order Comment: Reaso n for Exam Diarrhea;GERD (gastroesophageal reflux disease) Performed By: #### B OWEL CASC, CALPROTECT, ELASTASE STOOL #### [facility] , #### CMP, CRP, THYROID SC, LACTO SWBC, CBC, ESR #### [facility] [address] [place] [address] [place] Neutrophils (Bld) [#/Vol] 2.9 10*3/uL Normal 1.8-7.7 [facility] Comment on above: Order Comment: Reaso n for Exam Diarrhea;GERD (gastroesophageal reflux disease) Performed By: #### B OWEL CASC, CALPROTECT, ELASTASE STOOL #### [facility] , #### CMP, CRP, THYROID SC, LACTO SWBC, CBC, ESR #### [facility] [address] [place] [address] [place] Neutrophils/100 WBC (Bld) 60.9 % Normal . [facility] Comment on above: Order Comment: Reaso n for Exam Diarrhea;GERD (gastroesophageal reflux disease) Performed By: #### B OWEL CASC, CALPROTECT, ELASTASE STOOL #### [facility] , #### CMP, CRP, THYROID SC, LACTO SWBC, CBC, ESR #### [facility] [address] [place] [address] [place] Nucleated RBC/100 WBC (Bld) [Ratio] 0.2 % Normal 0-0.5 [facility] Comment on above: Order Comment: Reaso n for Exam Diarrhea;GERD (gastroesophageal reflux disease) Performed By: #### B OWEL CASC, CALPROTECT, ELASTASE STOOL #### [facility] , #### CMP, CRP, THYROID SC, LACTO SWBC, CBC, ESR #### [facility] [address] Platelet mean volume (Bld) [Entitic vol] 6.8 fL Normal 6.6-10.1 [facility] Comment on above: Order Comment: Reaso n for Exam Diarrhea;GERD (gastroesophageal reflux disease) Performed By: #### B OWEL CASC, CALPROTECT, ELASTASE STOOL #### [facility] , #### CMP, CRP, THYROID SC, LACTO SWBC, CBC, ESR #### [facility] [address] [place] [id number] [facility] Platelets (Bld) [#/Vol] 283 10*3/uL Normal 150-450 [facility] Comment on above: Order Comment: Reaso n for Exam Diarrhea;GERD (gastroesophageal reflux disease) Performed By: #### B OWEL CASC, CALPROTECT, ELASTASE STOOL #### [facility] , #### CMP, CRP, THYROID SC, LACTO SWBC, CBC, ESR #### [facility] [address] RBC (Bld) [#/Vol] 5.02 10*6/uL Normal 3.90-5.60 [facility] Comment on above: Order Comment: Reaso n for Exam Diarrhea;GERD (gastroesophageal reflux disease) Performed By: #### B OWEL CASC, CALPROTECT, ELASTASE STOOL #### [facility] , #### CMP, CRP, THYROID SC, LACTO SWBC, CBC, ESR #### [address] WBC (Bld) [#/Vol] 4.8 10*3/uL Normal 4.5-11.0 [facility] Comment on above: Order Comment: Reaso n for Exam Diarrhea;GERD (gastroesophageal reflux disease) Performed By: #### B OWEL CASC, CALPROTECT, ELASTASE STOOL #### [facility] , #### CMP, CRP, THYROID SC, LACTO SWBC, CBC, ESR #### [facility] [address] [place] [id number] [facility] Comprehensive Metabolic Pane willi 03-20-2022 Albumin [Mass/Vol] 3.8 g/dL Normal 3.2-5.5 [facility] Comment on above: Order Comment: Reaso n for Exam Diarrhea;GERD (gastroesophageal reflux disease) Performed By: #### B OWEL CASC, CALPROTECT, ELASTASE STOOL #### [facility] , #### CMP, CRP, THYROID SC, LACTO SWBC, CBC, ESR #### [facility] [address] [place] [id number] [facility] Albumin/Globulin [Mass ratio] 1.5 {ratio} Normal [facility] Comment on above: Order Comment: Reaso n for Exam Diarrhea;GERD (gastroesophageal reflux disease) Performed By: #### B OWEL CASC, CALPROTECT, ELASTASE STOOL #### [facility] , #### CMP, CRP, THYROID SC, LACTO SWBC, CBC, ESR #### [facility] [address] [place] [id number] [facility] ALP [Catalytic activity/Vol] 57 U/L Normal 32-92 [facility] Comment on above: Order Comment: Reaso n for Exam Diarrhea;GERD (gastroesophageal reflux disease) Performed By: #### B OWEL CASC, CALPROTECT, ELASTASE STOOL #### [facility] , #### CMP, CRP, THYROID SC, LACTO SWBC, CBC, ESR #### [facility] [address] ALT [Catalytic activity/Vol] 34 U/L Normal 10-60 [facility] Comment on above: Order Comment: Reaso n for Exam Diarrhea;GERD (gastroesophageal reflux disease) Performed By: #### B OWEL CASC, CALPROTECT, ELASTASE STOOL #### [facility] , #### CMP, CRP, THYROID SC, LACTO SWBC, CBC, ESR #### [facility] [address] [place] [id number] [place] AST [Catalytic activity/Vol] 27 U/L Normal 10-42 [facility] Comment on above: Order Comment: Reaso n for Exam Diarrhea;GERD (gastroesophageal reflux disease) Performed By: #### B OWEL CASC, CALPROTECT, ELASTASE STOOL #### [facility] , #### CMP, CRP, THYROID SC, LACTO SWBC, CBC, ESR #### [facility] [address] Bilirubin [Mass/Vol] 0.4 mg/dL Normal 0.3-1.2 [facility] Comment on above: Order Comment: Reaso n for Exam Diarrhea;GERD (gastroesophageal reflux disease) Performed By: #### B OWEL CASC, CALPROTECT, ELASTASE STOOL #### [facility] , #### CMP, CRP, THYROID SC, LACTO SWBC, CBC, ESR #### [facility] [address] Calcium [Mass/Vol] 9.0 mg/dL Normal 8.2-10.2 [facility] Comment on above: Order Comment: Reaso n for Exam Diarrhea;GERD (gastroesophageal reflux disease) Performed By: #### B OWEL CASC, CALPROTECT, ELASTASE STOOL #### [facility] , #### CMP, CRP, THYROID SC, LACTO SWBC, CBC, ESR #### [facility] [address] [place] [id number] [facility] Chloride [Moles/Vol] 103 mmol/L Normal 95-114 [facility] Comment on above: Order Comment: Reaso n for Exam Diarrhea;GERD (gastroesophageal reflux disease) Performed By: #### B OWEL CASC, CALPROTECT, ELASTASE STOOL #### [facility] , #### CMP, CRP, THYROID SC, LACTO SWBC, CBC, ESR #### [facility] [address] [place] [id number] [facility] CO2 [Moles/Vol] 25.8 mmol/L Normal 22.0-30.0 [facility] Comment on above: Order Comment: Reaso n for Exam Diarrhea;GERD (gastroesophageal reflux disease) Performed By: #### B OWEL CASC, CALPROTECT, ELASTASE STOOL #### [facility] , #### CMP, CRP, THYROID SC, LACTO SWBC, CBC, ESR #### [facility] [address] [place] [address] Creatinine [Mass/Vol] 1.03 mg/dL Normal 0.64-1.27 [facility] Comment on above: Order Comment: Reaso n for Exam Diarrhea;GERD (gastroesophageal reflux disease) Performed By: #### B OWEL CASC, CALPROTECT, ELASTASE STOOL #### [facility] , #### CMP, CRP, THYROID SC, LACTO SWBC, CBC, ESR #### [facility] [address] [place] [address] Estimated GFR ( Lucy > 60 [facility] Comment on above: Order Comment: Reaso n for Exam Diarrhea;GERD (gastroesophageal reflux disease) Result Comment: GFR estimated reference range: According to KDOQI guidelines, <60 ml/min/1.73m2 is sufficient to diagnose a patient with chronic kidney disease. Performed By: #### B OWEL CASC, CALPROTECT, ELASTASE STOOL #### [facility] , #### CMP, CRP, THYROID SC, LACTO SWBC, CBC, ESR #### [facility] [address] [place] [address] Estimated GFR (Non- Am > 60 [facility] Comment on above: Order Comment: Reaso n for Exam Diarrhea;GERD (gastroesophageal reflux disease) Performed By: #### B OWEL CASC, CALPROTECT, ELASTASE STOOL #### [facility] , #### CMP, CRP, THYROID SC, LACTO SWBC, CBC, ESR #### [facility] [address] [place] [address] Globulin (S) [Mass/Vol] 2.5 g/dL Normal [facility] Comment on above: Order Comment: Reaso n for Exam Diarrhea;GERD (gastroesophageal reflux disease) Performed By: #### B OWEL CASC, CALPROTECT, ELASTASE STOOL #### [facility] , #### CMP, CRP, THYROID SC, LACTO SWBC, CBC, ESR #### [facility] [address] Glucose [Mass/Vol] 88 mg/dL Normal 70-100 [facility] Comment on above: Order Comment: Reaso n for Exam Diarrhea;GERD (gastroesophageal reflux disease) Result Comment: [facility] Glucose Reference Range is dependent on time and content of last meal. Glucose of more than 200 mg/dL in a nonstressed, ambulatory subject supports the diagnosis of Diabetes Mellitus. ADA recommended reference range Performed By: #### B OWEL CASC, CALPROTECT, ELASTASE STOOL #### [facility] , #### CMP, CRP, THYROID SC, LACTO SWBC, CBC, ESR #### [facility] [address] Potassium [Moles/Vol] 4.0 mmol/L Normal 3.5-5.1 [facility] Comment on above: Order Comment: Reaso n for Exam Diarrhea;GERD (gastroesophageal reflux disease) Performed By: #### B OWEL CASC, CALPROTECT, ELASTASE STOOL #### [facility] , #### CMP, CRP, THYROID SC, LACTO SWBC, CBC, ESR #### [facility] [address] Protein [Mass/Vol] 6.3 g/dL Normal 6.1-7.9 [facility] Comment on above: Order Comment: Reaso n for Exam Diarrhea;GERD (gastroesophageal reflux disease) Performed By: #### B OWEL CASC, CALPROTECT, ELASTASE STOOL #### [facility] , #### CMP, CRP, THYROID SC, LACTO SWBC, CBC, ESR #### [facility] [address] [place] [address] [place] Sodium [Moles/Vol] 139 mmol/L Normal 136-146 [facility] Comment on above: Order Comment: Reaso n for Exam Diarrhea;GERD (gastroesophageal reflux disease) Performed By: #### B OWEL CASC, CALPROTECT, ELASTASE STOOL #### [facility] , #### CMP, CRP, THYROID SC, LACTO SWBC, CBC, ESR #### [facility] [address] [place] [address] Urea nitrogen [Mass/Vol] 12 mg/dL Normal 9-23 [facility] Comment on above: Order Comment: Reaso n for Exam Diarrhea;GERD (gastroesophageal reflux disease) Performed By: #### B OWEL CASC, CALPROTECT, ELASTASE STOOL #### [facility] , #### CMP, CRP, THYROID SC, LACTO SWBC, CBC, ESR #### [facility] [address] [place] [address] Erythrocyte Sedimentation Ra tracy 03-20-2022 ESR (Bld) [Velocity] 8 mm/h Normal 0-19 [facility] Comment on above: Order Comment: Reaso n for Exam Diarrhea;GERD (gastroesophageal reflux disease) Result Comment: PERF ORMED BY: [place] [address] PATHOLOGIST ENVIRONMENTAL DEPARTMENT MANAGER ILA PETERSON M.D. Performed By: #### B OWEL CASC, CALPROTECT, ELASTASE STOOL #### [facility] , #### CMP, CRP, THYROID SC, LACTO SWBC, CBC, ESR #### [facility] [address] [place] [address] Lactoferrin, Stool WBCon Lactoferrin, Stool WBC Reason for Exam Diarrhea;GERD (gastroesophageal reflux disease) Stool Reason for Exam: Diarrhea;GERD (gastroesophageal reflux disease) : Stool LACTOFERRIN Negative for Fecal Lactoferrin Immune suppression may cause reduced WBC counts, leading to a false negative result. Reference range = Negative PERFORMED BY: [place] [address] [place] [address] PATHOLOGIST ENVIRONMENTAL DEPARTMENT MANAGER ILA PETERSON M.D. [facility] Comment on above: Performed By: #### B OWEL CASC, CALPROTECT, ELASTASE STOOL ####[facility] ,#### CMP, CRP, THYROID SC, LACTO SWBC, CBC, ESR ####[place] [id number] Pancreatic Elastase, Stoolon 03-20-2022 Pancreatic Elastase, Stool 132 Low >200 [facility] Comment on above: Order Comment: Reaso n for Exam Diarrhea;GERD (gastroesophageal reflux disease) Result Comment: Resu lt Units: ug Elast./g Severe Pancreatic Insufficiency: <100 Moderate Pancreatic Insufficiency: 100 - 200 Normal: >200 Performed at: [address] [id number] [employer] Teacher: Jevon Arguelles MD, Phone: [phone] Performed By: #### B OWEL CASC, CALPROTECT, ELASTASE STOOL ####[facility] ,#### CMP, CRP, THYROID SC, LACTO SWBC, CBC, ESR ####[place] [id number] THYROID SCREENon 03-20-2022 Free T4 [Mass/Vol] 0.72 ng/dL Normal 0.61-1.12 [facility] Comment on above: Order Comment: Reaso n for Exam Diarrhea;GERD (gastroesophageal reflux disease) Performed By: #### B OWEL CASC, CALPROTECT, ELASTASE STOOL ####[facility] ,#### CMP, CRP, THYROID SC, LACTO SWBC, CBC, ESR ####[place] [id number] TSH Qn 1.15 m[IU]/L Normal 0.45-5.33 [facility] Comment on above: Order Comment: Reaso n for Exam Diarrhea;GERD (gastroesophageal reflux disease) Result Comment: PERF ORMED BY: [facility] [address] [place] [address] PATHOLOGIST ENVIRONMENTAL DEPARTMENT MANAGER ILA PETERSON M.D. Performed By: #### B OWEL CASC, CALPROTECT, ELASTASE STOOL ####[facility] ,#### CMP, CRP, THYROID SC, LACTO SWBC, CBC, ESR ####[facility] [id number] [place] [id number] [facility] CT CHEST WO CONon 08-21-2019 CT CHEST WO CON Patient: BRITTON POWELL Exam Date: 08/21/2019 : 1970 Gender:M Ordering : DR KP TSANG Admission #: [id number] Family : Order #: [id number] CLICK HERE TO VIEW EXAM RADIOLOGY REPORT PROCEDURE: CT CHEST WITHOUT CONTRAST COMPARISON: CTA CHEST W CON, 04/07/2018. CT CHEST WO CON, 08/08/2018. INDICATIONS: Subsequent imaging for right lower lobe lung nodule TECHNIQUE: Axial, Coronal, and Sagittal images were created without the administration of IV contrast material. DOSE: 507mGycm FINDINGS: LUNGS: Subcentimeter noncalcified pulmonary nodules throughout both lungs, stable in both number and size. No new focal nodule or mass. PLEURA: No mass, effusion, or pneumothorax. VASCULATURE: No abnormality ENE: No mass or adenopathy. MEDIASTINUM: No mass or adenopathy. CARDIAC: No enlargement, pericardial thickening, or significant calcification. AORTA: No aneurysm or dissection. CHEST WALL: No mass or axillary adenopathy. BONES: No bone lesion or fracture. LIMITED ABDOMEN: No suspicious findings. Limited images of the upper abdomen. OTHER: Negative. CONCLUSION: 1. Stable pulmonary nodules, consider follow-up noncontrast CT scan of the chest in 1 year Dictated by: Akbar Crespo M.D. on 08/21/2019 at 10:28 Approved by: Akbar Crespo M.D. on 08/21/2019 at 10:32 Normal [facility] XR T-SPINE 3 VIEWSon 019 XR T-SPINE 3 VIEWS Patient: BRITTON POWELL Exam Date: 08/21/2019 : 1970 Gender:M Ordering : DR KP TSANG Admission #: [id number] Family : Order #: [id number] CLICK HERE TO VIEW EXAM RADIOLOGY REPORT PROCEDURE: RADIOGRAPH T-SPINE 3 VIEWS COMPARISON: None. INDICATIONS: Chronic thoracic pain without injury FINDINGS: BONES: Mild widespread spondylosis and facet osteoarthritis. No visible acute bony abnormality. Dextrocurvature DISC SPACES: Normal. No significant disc height narrowing, subluxation, or endplate abnormality. PARASPINOUS: Negative. No paraspinous abnormality is seen. OTHER: Negative. CONCLUSION: 1. Mild degenerative spondylosis, facet osteoarthritis and dextrocurvature Dictated by: Akbar Crespo M.D. on 08/21/2019 at 10:02 Approved by: Akbar Crespo M.D. on 08/21/2019 at 10:04 Normal [facility] Vital Signs Date Time Vital Sign Value Performing Clinician Facility 04-23-2023 14:00-0400 Body height 177.8 cm aNzario Abbott Other [facility] Other 04-23-2023 14:00-0400 Body mass index (BMI) [Ratio] 26.97 kg/m2 Nazario Abbott Other [facility] Other 04-23-2023 14:00-0400 Body weight 85.28 kg Nazario Abbott Other [facility] Other 04-23-2023 14:00-0400 Diastolic blood pressure 91 mm[Hg] Nazario Abbott Other [facility] Other 04-23-2023 14:00-0400 Systolic blood pressure 137 mm[Hg] Nazario Abbott Other [facility] Other 10-23-2022 15:45-0500 Body height 177.8 cm Nazario Abbott Other [facility] Other 10-23-2022 15:45-0500 Body mass index (BMI) [Ratio] 26.97 kg/m2 Nazario Abbott Other [facility] Other 10-23-2022 15:45-0500 Body weight 85.28 kg Nazario Abbott Other [facility] Other 08-21-2022 14:00-0400 Body height 177.8 cm Nazario Abbott Other [facility] Other 08-21-2022 14:00-0400 Body mass index (BMI) [Ratio] 26.69 kg/m2 Nazario Abbott Other [facility] Other 08-21-2022 14:00-0400 Body weight 84.37 kg Nazario Abbott Other [facility] Other 03-06-2022 15:15-0400 Body height 177.8 cm Nazario Abbott Other [facility] Other 03-06-2022 15:15-0400 Body mass index (BMI) [Ratio] 27.26 kg/m2 Nazario Abbott Other [facility] Other 03-06-2022 15:15-0400 Body weight 86.18 kg Nazario Abbott Other [facility] Other 03-06-2022 15:15-0400 Diastolic blood pressure 87 mm[Hg] Nazario Abbott Other [facility] Other 03-06-2022 15:15-0400 Systolic blood pressure 147 mm[Hg] Nazario Abbott Other [facility] Other Encounters Encounter Date Encounter Type Care Provider Facility Start: 04-23-2023 End: 04-23-2023 ambulatory Nazario Abbott Other [facility] Other Start: 04-23-2023 Office outpatient visit 15 minutes Nazario Milena [facility] Start: 10-29-2022 End: 10-29-2022 ambulatory Nazario Abbott Other [facility] Other Start: 10-29-2022 Telephone encounter Nazario Noe estrella [facility] Start: 10-25-2022 End: 10-25-2022 ambulatory Kp Tsang Facility:[facility] Start: 10-25-2022 End: 10-25-2022 ambulatory MD Kp Tsang Work Phone: [facility] Work Phone: Start: 10-25-2022 End: 10-25-2022 Patient encounter procedure MD Kp Tsang Work Phone: [facility] [place] Start: 10-23-2022 End: 10-23-2022 ambulatory Nazario Milena Other [facility] Other Start: 10-23-2022 Office outpatient visit 25 minutes Nazario Abbott [facility] Start: 08-24-2022 End: 08-24-2022 ambulatory Kp Tsang Facility:[facility] Start: 08-24-2022 End: 08-24-2022 Patient encounter procedure MD Kp Tsang Work Phone: [facility] [place] Start: 08-21-2022 End: 08-21-2022 ambulatory Nazario Milena Other [facility] Other Start: 08-21-2022 Office outpatient visit 15 minutes Nazario Abbott [facility] Start: 07-31-2022 End: 07-31-2022 ambulatory Kp Tsang Facility:[facility] Start: 07-31-2022 End: 07-31-2022 Patient encounter procedure MD Kp Tsang Work Phone: [facility] Start: 04-05-2022 End: 04-05-2022 ambulatory Kp Tsang Facility:[facility] Start: 03-28-2022 End: 03-28-2022 ambulatory Nazario Abbott Other [facility] Other Start: 03-28-2022 Telephone encounter Nazario Liu ck [facility] Start: 03-22-2022 End: 03-22-2022 ambulatory Nazario Abbott Facility:[facility] Start: 03-20-2022 End: 03-20-2022 ambulatory Nazario Abbott Facility:[facility] Start: 03-06-2022 End: 03-06-2022 ambulatory Nazario Abbott Other [facility] Other Start: 03-06-2022 Office outpatient ne w 45 minutes Nazario Abbott [facility] Start: 08-21-2019 End: 08-22-2019 Patient encounter procedure KP Holly RTINH Facility:[facility] Procedures Date Procedure Procedure Detail Performing Clinician Start: 07-31-2022 Plain x-ray of pelvi s and lower extremity MD Kp Tsang Work Phone: Start: 07-31-2022 X-ray of cervical spine MD Kp Tsang Work Phone: Start: 07-31-2022 X-ray of lumbar spin e, four or more views MD Kp Tsang Work Phone: Plan of Treatment Date Care Activity Detail Author C reactive protein [ Mass/volume] in Serum or Plasma [facility] Work Phone: Trypsin [Mass/volume] in Serum or Plasma [facility] Work Phone: Immunizations Immunization Date Immunization Notes Care Provider [facility] 01-25-2021 COVID-19 Natalya Mathur (Pfizer) MD Kp Tsang Work Phone: [facility] 01-04-2021 COVID-19 Natalya Mathur (Pfizer) MD Kp Tsang Work Phone: [facility] Payers Date Payer Category Payer Self-pay [id number] 1970 Unknown [id number] 2.16.84 [id number] 1961 Unknown [id number] Unknown [id number] 2.16.8 [id number] Unknown [id number] 2.16.8 [id number] Unknown [id number] 2.16.8 [id number] Unknown [id number] 2.16.8 [id number] Unknown [id number] 2.16.8 [id number] Unknown [id number] 2.16.8 [id number] Unknown [id number] 2.16.8 [id number] Social History Date Type Detail Facility Sex Assigned At [facility] Other Start: 03-22-2022 End: 03-22-2022 Tobacco smoking status RUST Never smoked tobacco (finding) [facility] Start: 1970 Sex Assigned At Male [facility] Evaluation note 04-23-2023 Note Date & Type Note Facility 04-23-2023 Evaluation note Encounter Date Diagnosis Assessment Notes March, Pancreatic insufficiency (ICD-10 - K86.89) Patient is improving with fodmap diet. March, GERD (gastroesophagea l reflux disease) (ICD-10 - K21.9) Patient is doing well on omeprazole 20 mg once daily and will continue with this therapy March, Diarrhea (ICD-10 - R19.7) Patient is has occasional diarrhea RTO 1 year [facility] Other Evaluation note 10-23-2022 Note Date & Type Note Facility 10-23-2022 Evaluation note Encounter Date Diagnosis Assessment Notes Sep, GERD (gastroesophagea l reflux disease) (ICD-10 - K21.9) Sep, Pancreatic insufficiency (ICD-10 - K86.89) CONTINUE LOW FODMAP DIET RTO 6 MONTHS Sep, Diarrhea (ICD-10 - R19.7) Sep, Abdominal pain (ICD-10 - R10.9) Sep, Abnormal CT scan (ICD-10 - R93.89) Sep, Irritable bowel syndrome (ICD-10 - K58.9) [facility] Other Evaluation note 08-21-2022 Note Date & Type Note Facility 08-21-2022 Evaluation note Encounter Date Diagnosis Assessment Notes Jul, Diarrhea (ICD-10 - R19.7) Jul, GERD (gastroesophagea l reflux disease) (ICD-10 - K21.9) CONTINUE OMEPRAZOLE 20 MG DAILY Jul, Antral gastritis (ICD-10 - K29.50) Jul, Hiatal hernia (ICD-10 - K44.9) Jul, Exocrine pancreatic insufficiency (ICD-10 - K86.81) RTO 2 MONTHS [facility] Other Evaluation note 03-28-2022 Note Date & Type Note Facility 03-28-2022 Evaluation note Encounter Date Diagnosis Assessment Notes March, Pancreatic insufficiency (ICD-10 - K86.89) [facility] Other Evaluation note 03-06-2022 Note Date & Type Note Facility 03-06-2022 Evaluation note Encounter Date Diagnosis Assessment Notes Feb, Diarrhea (ICD-10 - R19.7) Labs and stool studies as indicated above Colonoscopy Start low fodmap diet. Education handout given to patient Feb, GERD (gastroesopha geal reflux disease) (ICD-10 - K21.9) Continue Omeprazole EGD [facility] Other Evaluation note Note Date & Type Note Facility Evaluation note No assessment information availa ble [facility] Work Phone: Evaluation note Note Date & Type Note Facility Evaluation note No Information [facility] [employer] Other History general Narrative - Reported Note Date & Type Note Facility History general Narrative - Reported Type Medical History GERD Surgical History left wrist [facility] Other Reason for visit Narrative Note Date & Type Note Facility Reason for visit Narrative PATIENT REFFE RED BY KP TSANG FOR IBS W/DIARRHEA, (REFERRAL NOTE RECEIVED) [place] [facility] Other Summary Purpose Family History Relationship Condition Age at Onset Recorded Date/T halle Not Specified No pertinent family history Unknown Advance Directives Advance Directive Response Recorded Date/ Time Advance Directives No March 12 3:50pm Advance Directive Response Recorded Date/ Time Advance Directives No March 12 2:50pm Chief Complaint and Reason for Visit Chief Complaint m25.50 z11.59 xray Chief Complaint m25.50 z11.59 xray K86.81 K86.89 R19.7 R10.9 Additional Source Comments (unrecognized sect ion and content) No Status Records FoundNo Status Records Found INFORMATION SOURCE (unrecogn ized section and content) DATE CREATED AUTHOR 08/28/2019 [facility] DATE CREATED AUTHOR AUTHOR'S ORGANIZ ATION 10/26/2022 [facility] REASON FOR VISIT (unrecogniz ed section and content) medicationPATIENT HERE FOR F OLLOW UP TO DIARRHEA AND GERD. PATIENT WAS TO HAVE LABS & CT SCAN, PATIENT DID HAVE EGD/COLONOSCOPY ON 03/22/2022.LAB ORDER2 month Follow up-PER [facility] for GERD and Exocrine pancreatic insufficiency. Patient was to continue on the Omeprazole, Zenpep and to have labs completed. Pt is not taking zenpep or creon, he states they are too expensivePATIENT HERE FOR 6 MONTH FOLLOW UP Care Teams (unrecognized sec tion and content) Team Status: Inactive Member Role Status Dates Kp Tsang MD Primary Care Provider Active Jaycob Madison MD Attending Provider Active Team Status: Active Member Role Status Dates Kp Tsang MD Primary Care Provider Active Team Status: Inactive Member Role Status Dates Kp Tsang MD Primary Care Provider Active Nazario Abbott MD Attending Provider Active Goals (unrecognized section and content) Goals may be documented in a n alternate section FOR RECORDS PERTAINING TO PATIENTS WHO ARE OR HAVE BEEN ENROLLED IN A CHEMICAL DEPENDENCY/SUBSTANCEABUSE PROGRAM, SOME INFORMATION MAY BE OMITTED. This clinical summary was aggregated from multiple sources. Caution should be exercised in using it in the provision of clinical care. This summary normalizes information from multiple sources, and as a consequence, information in this document may materially change the coding, format and clinical context of patient data. In addition, data may be omitted in some cases. CLINICAL DECISIONS SHOULD BE BASED ON THE PRIMARY CLINICAL RECORDS. [facility]. provides no warranty or guarantee of the accuracy or completeness of information in this document.
--- NOTE | 2024-08-13 09:00 | RT_ITS ---
[facility] Test Date: 2024-08-13 Pat Name: BRITTON HADLEY Department: Room: - Gender: Male [employer] Supervisor: Alexia Atkins RRT : 1970 Requested By: [id number] Order Number: [id number] Reading MD: Otoniel Castro Interpretive Statements Spirometry was completed according to ATS criteria. Findings were considered accurate and reproducible. No bronchodilator was administered due to normal spirometric values. Spirometry: -FEV1/FVC: Normal @ 80% -FEV1: Normal @ 85% -FVC: Low normal @ 81% Impressions: -Technically normal spirometry, though it is trending towards a mild restrictive pattern. Clinical correlation required. Electronically Signed On 08-18-2024 12:55:37 EDT by Otoniel Castro
== END 2024-08-13 08:28 | disposition home or self-care (01) ==
LOC: CARD 08:27
PROVIDERS: PCP Family Medicine; Visit Provider Chiropractor
DX: J45.991 Cough variant asthma (principal)
CPT/HCPCS: 36415; 80053; 80061; 85025; 94010

== ENCOUNTER 2024-08-13 09:10 | Outpatient (OUT) | payer BC, SELFPAY ==
[2024-08-13 09:23] LABS: Basophils Percent Auto 0.6 % (0.2-2.0); Eosinophils Absolute Auto 0.1 10^3/uL (0.0-0.7); Eosinophils Percent Auto 1.6 % (0.9-7.0); Hematocrit 45.1 % (42.0-54.0); Hemoglobin 15.2 g/dL (14.0-18.0); Immature Granulocytes Abs Auto 0.01 10^3/uL (0.00-0.03); Immature Granulocytes Pct Auto 0.2 % (0.0-0.5); Lymphocytes Absolute Auto 1.3 10^3/uL (1.2-3.8); Lymphocytes Percent Auto 27.5 % (20.5-60.0); Mean Corpuscular HGB Conc 33.7 g/dL (29.9-35.2); Mean Corpuscular Hemoglobin 28.8 pg (25.9-34.0); Mean Corpuscular Volume 85.6 fL (80.0-94.0); Mean Platelet Volume 8.1 fL (9.5-13.5); Monocytes Absolute Auto 0.4 10^3/uL (0.3-0.8); Monocytes Percent Auto 7.2 % (1.7-12.0); Neutrophils Absolute Auto 3.1 10^3/uL (1.4-6.5); Neutrophils Percent Auto 62.9 % (43.0-75.0); Platelet Count 289 10^3/uL (150-450); Red Blood Count 5.27 10^6/uL (4.70-6.10); Red Cell Distribution Width 12.9 % (11.0-15.0); White Blood Count 4.9 10^3/uL (4.0-11.0)
--- OUTSIDE RECORDS SUMMARY | 2024-08-13 09:34 | XMS_ITS | CCD ---
Author Organization [facility] Care Team Providers Care Computer Help Desk Specialist Name Role Phone KP TSANG Admitting Unavailable KP TSANG Attending Unavailable AKBAR CRESPO V Consulting Unavailable KP TSANG Consulting Unavailable Nazario Abbott Unavailable [phone] MD Kp Tsang Primary Care Provider MD Jaycob Madison Attending Provider MD Kp Tsang Primary Care Provider MD Jaycob Madison Attending Provider MD Nazario Abbott Attending Provider Nazario Abbott Admitting Unavailabl valerio Tsang, Kp [...] source) egg extract Drug Allergy 11-08-2013 [facility] Repository Medications Current Medications Medication Drug Class(es) Dates Sig (Normalized) Sig (Original) omeprazole 20 mg delayed release oral capsule (9 sources) Proton Pump Inhibitor Start: 03-21-2022 take 20 mg by mouth once daily Omeprazole Active 20 MG PO Daily March 20, 2022 11:00pm Zen[facility] [id number] UNIT (1 source) Start: 08-21-2022 take 2 capsules by mouth three times daily Zenpep [id number] UNIT 2 CAPSULES Orally THREE TIMES A [...] on 08-24-2022 Elastase.pancreatic (Stl) [Mass/Mass] 197 >200 [facility] Comment on above: Result Units: ug Suni st./g Severe Pancreatic Insufficiency: <100 Moderate Pancreatic Insufficiency: 100 - 200 Normal: >200Performed at: [facility] [address] [id number] Director: Jevon Arguelles MD, Phone: [phone] Pancreatic Elastase, Stoolon 08-24-2022 Pancreatic Elastase, Stool 197 Low >200 [facility] Comment on above: Order Comment: Reaso n for Exam Exocrine pancreatic insufficiency Result Comment: Resu lt Units: ug Elast./g Severe Pancreatic Insufficiency: <100 Moderate Pancreatic Insufficiency: 100 - 200 Normal: >200 Performed at: [facility] [address] [id number] Homicide Squad Captain: Jevon Arguellse MD, Phone: [phone] PERFORMED BY: [facility] [address] [place] [address] PATHOLOGIST [employer] ILA PETERSON M.D. Performed By: #### E LASTASE STOOL ####[facility] , Basophils Auto (Bld) [#/Vol] Ordered By: Jaycob Madison on 07-31-2022 Basophils (Bld) [#/Vol] 0.0 10*3/uL 0.0-0.2 [facility] Basophils/100 WBC Auto (Bld) Ordered By: Jaycob Madison on 07-31-2022 Basophils/100 WBC (Bld) 0.7 % . [facility] Blood hemoglobin measurement (mass/volume)Ordered By: Jaycob Madison on 07-31-2022 Hemoglobin (Bld) [Mass/Vol] 15.1 g/dL 13.0-17.0 [facility] Blood leukocytes automated c ount (number/volume)Ordered By: Jaycob Madison on 07-31-2022 WBC (Bld) [#/Vol] 4.7 10*3/uL 4.5-11.0 [facility] Body fluid albumin measureme nt (mass/volume)Ordered By: Jaycob Madison on 07-31-2022 Albumin (Body fld) [Mass/Vol] 4.1 g/dL 3.2-5.5 [facility] C reactive protein [Mass/vol ume] in Serum or PlasmaOrdered By: Jaycob Madison on 07-31-2022 CRP [Mass/Vol] 0.7 mg/dL 0.0-1.0 [facility] C-Reactive Proteinon 022 C-Reactive Protein 0.7 mg/dL Normal 0.0-1.0 [facility] Comment on above: Result Comment: PERF ORMED BY: [facility] [address] [place] [address] PATHOLOGIST [employer] ILA PETERSON M.D. Performed By: #### C RP, CMP, CBC, ESR #### [place] [id number] [facility] Complete Blood Count Auto Di ffon 07-31-2022 Basophils (Bld) [#/Vol] 0.0 10*3/uL Normal 0.0-0.2 [facility] Comment on above: Performed By: #### C RP, CMP, CBC, ESR #### [address] Basophils/100 WBC (Bld) 0.7 % Normal . [facility] Comment on above: Performed By: #### C RP, CMP, CBC, ESR #### [address] Eosinophils (Bld) [#/Vol] 0.1 10*3/uL Normal 0.0-0.45 [facility] Comment on above: Performed By: #### C RP, CMP, CBC, ESR #### [address] Eosinophils/100 WBC (Bld) 1.4 % Normal . [facility] Comment on above: Performed By: #### C RP, CMP, CBC, ESR #### [address] Erythrocyte distribution width (RBC) [Ratio] 13.4 % Normal 12.0-14.8 [facility] Comment on above: Performed By: #### C RP, CMP, CBC, ESR #### [address] Hematocrit (Bld) [Volume fraction] 44.6 % Normal 38.8-50.0 [facility] Comment on above: Performed By: #### C RP, CMP, CBC, ESR #### [address] Hemoglobin (Bld) [Mass/Vol] 15.1 g/dL Normal 13.0-17.0 [facility] Comment on above: Performed By: #### C RP, CMP, CBC, ESR #### [address] Lymphocytes (Bld) [#/Vol] 1.3 10*3/uL Normal 1.00-4.8 [facility] Comment on above: Performed By: #### C RP, CMP, CBC, ESR #### [facility] [address] Lymphocytes/100 WBC (Bld) 26.5 % Normal . [facility] Comment on above: Performed By: #### C RP, CMP, CBC, ESR #### [facility] [address] MCH (RBC) [Entitic mass] 29.0 pg Normal 27.5-35.2 [facility] Comment on above: Performed By: #### C RP, CMP, CBC, ESR #### [address] MCV (RBC) [Entitic vol] 85.7 fL Normal 83.5-101 [facility] Comment on above: Performed By: #### C RP, CMP, CBC, ESR #### [address] Mean Corpuscular HGB Conc 33.9 g/dL Normal 32.5-35.6 [facility] Comment on above: Performed By: #### C RP, CMP, CBC, ESR #### [place] [address] [place] Monocytes (Bld) [#/Vol] 0.2 10*3/uL Normal 0.0-0.8 [facility] Comment on above: Performed By: #### C RP, CMP, CBC, ESR #### [place] [address] [place] Monocytes/100 WBC (Bld) 4.8 % Normal . [facility] Comment on above: Performed By: #### C RP, CMP, CBC, ESR #### [place] [address] [place] Neutrophils (Bld) [#/Vol] 3.2 10*3/uL Normal 1.8-7.7 [facility] Comment on above: Performed By: #### C RP, CMP, CBC, ESR #### [place] [address] [place] Neutrophils/100 WBC (Bld) 66.6 % Normal . [facility] Comment on above: Performed By: #### C RP, CMP, CBC, ESR #### [address] Nucleated RBC/100 WBC (Bld) [Ratio] 0.2 % Normal 0-0.5 [facility] Comment on above: Performed By: #### C RP, CMP, CBC, ESR #### [address] Platelet mean volume (Bld) [Entitic vol] 6.8 fL Normal 6.6-10.1 [facility] Comment on above: Performed By: #### C RP, CMP, CBC, ESR #### [address] Platelets (Bld) [#/Vol] 331 10*3/uL Normal 150-450 [facility] Comment on above: Performed By: #### C RP, CMP, CBC, ESR #### [address] RBC (Bld) [#/Vol] 5.21 10*6/uL Normal 3.90-5.60 [facility] Comment on above: Performed By: #### C RP, CMP, CBC, ESR #### [address] WBC (Bld) [#/Vol] 4.7 10*3/uL Normal 4.5-11.0 [facility] Comment on above: Performed By: #### C RP, CMP, CBC, ESR #### [address] Comprehensive Metabolic Pane willi 07-31-2022 Albumin [Mass/Vol] 4.1 g/dL Normal 3.2-5.5 [facility] Comment on above: Performed By: #### C RP, CMP, CBC, ESR #### [address] Albumin/Globulin [Mass ratio] 1.6 {ratio} Normal [facility] Comment on above: Performed By: #### C RP, CMP, CBC, ESR #### [facility] [address] [place] [id number] [place] ALP [Catalytic activity/Vol] 53 U/L Normal 32-92 [facility] Comment on above: Performed By: #### C RP, CMP, CBC, ESR #### [facility] [address] [place] [id number] [facility] ALT [Catalytic activity/Vol] 28 U/L Normal 10-60 [facility] Comment on above: Performed By: #### C RP, CMP, CBC, ESR #### [facility] [address] [place] [id number] [facility] Anion gap [Moles/Vol] 11.6 mmol/L Normal 6.0-15.0 [facility] Comment on above: Performed By: #### C RP, CMP, CBC, ESR #### [facility] [address] AST [Catalytic activity/Vol] 23 U/L Normal 10-42 [facility] Comment on above: Performed By: #### C RP, CMP, CBC, ESR #### [facility] [address] [place] [address] [place] Bilirubin [Mass/Vol] 0.6 mg/dL Normal 0.3-1.2 [facility] Comment on above: Performed By: #### C RP, CMP, CBC, ESR #### [facility] [address] [place] [address] [place] Calcium [Mass/Vol] 9.5 mg/dL Normal 8.2-10.2 [facility] Comment on above: Performed By: #### C RP, CMP, CBC, ESR #### [facility] [address] [place] [address] [place] Chloride [Moles/Vol] 106 mmol/L Normal 95-114 [facility] Comment on above: Performed By: #### C RP, CMP, CBC, ESR #### [facility] [address] [place] [id number] [place] CO2 [Moles/Vol] 25.9 mmol/L Normal 22.0-30.0 [facility] Comment on above: Performed By: #### C RP, CMP, CBC, ESR #### [facility] [address] Creatinine [Mass/Vol] 1.02 mg/dL Normal 0.64-1.27 [facility] Comment on above: Performed By: #### C RP, CMP, CBC, ESR #### [facility] [address] Estimated GFR ( Lucy > 60 [facility] Comment on above: Result Comment: GFR estimated reference range: According to KDOQI guidelines, <60 ml/min/1.73m2 is sufficient to diagnose a patient with chronic kidney disease. Performed By: #### C RP, CMP, CBC, ESR #### [facility] [address] Estimated GFR (Non- Am > 60 [facility] Comment on above: Performed By: #### C RP, CMP, CBC, ESR #### [facility] [address] Globulin (S) [Mass/Vol] 2.5 g/dL Normal [facility] Comment on above: Performed By: #### C RP, CMP, CBC, ESR #### [facility] [address] Glucose [Mass/Vol] 119 mg/dL High 70-100 [facility] Comment on above: Result Comment: [place] Glucose Reference Range is dependent on time and content of last meal. Glucose of more than 200 mg/dL in a nonstressed, ambulatory subject supports the diagnosis of Diabetes Mellitus. ADA recommended reference range Performed By: #### C RP, CMP, CBC, ESR #### [facility] [address] Potassium [Moles/Vol] 4.5 mmol/L Normal 3.5-5.1 [facility] Comment on above: Performed By: #### C RP, CMP, CBC, ESR #### [facility] [address] Protein [Mass/Vol] 6.6 g/dL Normal 6.1-7.9 [facility] Comment on above: Performed By: #### C RP, CMP, CBC, ESR #### [facility] [address] Sodium [Moles/Vol] 139 mmol/L Normal 136-146 [facility] Comment on above: Performed By: #### C RP, CMP, CBC, ESR #### [facility] [address] Urea nitrogen [Mass/Vol] 13 mg/dL Normal 9-23 [facility] Comment on above: Performed By: #### C RP, CMP, CBC, ESR #### [facility] [address] Creatinine and Glomerular fi ltration rate.predicted panel (S/P/Bld)Ordered By: Jaycob Madison on 07-31-2022 Creatinine [Mass/Vol] 1.02 mg/dL 0.64-1.27 [facility] Eosinophils Auto (Bld) [#/Vo l]Ordered By: Jaycob Madison on 07-31-2022 Eosinophils (Bld) [#/Vol] 0.1 10*3/uL 0.0-0.45 [facility] Eosinophils/100 WBC Auto (Bl d)Ordered By: Jaycob Madison on 07-31-2022 Eosinophils/100 WBC (Bld) 1.4 % . [facility] Erythrocyte Sedimentation Ra tracy 07-31-2022 ESR (Bld) [Velocity] 3 mm/h Normal 0-19 [facility] Comment on above: Result Comment: PERF ORMED BY: [place] [address] PATHOLOGIST [employer] ILA PETERSON M.D. Performed By: #### C RP, CMP, CBC, ESR #### [address] Erythrocyte distribution wid th Auto (RBC) [Ratio]Ordered By: Jaycob Madison on 07-31-2022 Erythrocyte distribution width (RBC) [Ratio] 13.4 % 12.0-14.8 [facility] Erythrocyte sedimentation ra te by Photometric methodOrdered By: Jaycob Madison on 07-31-2022 ESR Photometric method (Bld) [Velocity] 3 mm/hr 0-19 [facility] Estimated glomerular filtrat ion rate (GFR) non- AmericanOrdered By: Jaycob Madison on 07-31-2022 GFR/1.73 sq M.predicted among non-blacks MDRD (S/P/Bld) [Vol rate/Area] > 60 mL/Min [facility] Globulin Calc (S) [Mass/Vol] Ordered By: Jaycob Madison on 07-31-2022 Globulin (S) [Mass/Vol] 2.5 g/dL [facility] Hematocrit Auto (Bld) [Volum e fraction]Ordered By: Jaycob Madison on 07-31-2022 Hematocrit (Bld) [Volume fraction] 44.6 % 38.8-50.0 [facility] Laboratory - Hematology and Cell countsOrdered By: Jaycob Madison on 07-31-2022 Nucleated RBC/100 WBC (Bld) [Ratio] 0.2 % 0-0.5 [facility] Lymphocytes Auto (Bld) [#/Vo l]Ordered By: Jaycob Madison on 07-31-2022 Lymphocytes (Bld) [#/Vol] 1.3 10*3/uL 1.00-4.8 [facility] Lymphocytes/100 WBC Auto (Bl d)Ordered By: Jaycob Madison on 07-31-2022 Lymphocytes/100 WBC (Bld) 26.5 % . [facility] MCH Auto (RBC) [Entitic mass ]Ordered By: Jaycob Madison on 07-31-2022 MCH (RBC) [Entitic mass] 29.0 pg 27.5-35.2 [facility] MCHC Auto (RBC) [Mass/Vol]Or dered By: Jaycob Madison on 07-31-2022 MCHC (RBC) [Mass/Vol] 33.9 g/dL 32.5-35.6 [facility] MCV Auto (RBC) [Entitic vol] Ordered By: Jaycob Madison on 07-31-2022 MCV (RBC) [Entitic vol] 85.7 fL 83.5-101 [facility] Monocytes Auto (Bld) [#/Vol] Ordered By: Jaycob Madison on 07-31-2022 Monocytes (Bld) [#/Vol] 0.2 10*3/uL 0.0-0.8 [facility] Monocytes/100 WBC Auto (Bld) Ordered By: Jacyob Madison on 07-31-2022 Monocytes/100 WBC (Bld) 4.8 % . [facility] Neutrophils Auto (Bld) [#/Vo l]Ordered By: Jaycob Madison on 07-31-2022 Neutrophils (Bld) [#/Vol] 3.2 10*3/uL 1.8-7.7 [facility] Neutrophils/100 WBC Auto (Bl d)Ordered By: Jaycob Madison on 07-31-2022 Neutrophils/100 WBC (Bld) 66.6 % . [facility] No Panel InformationOrdered By: Jaycob Madison on 07-31-2022 Estimated GFR () > 60 mL/Min [facility] Comment on above: GFR estimated refere nce range: According to KDOQI guidelines, <60 ml/min/1.73m2 is sufficient to diagnose a patient with chronic kidney disease. Pharmacy Creatinine Clearance (Chem N/A [facility] Platelet mean volume Auto (B ld) [Entitic vol]Ordered By: Jaycob Madison on 07-31-2022 Platelet mean volume (Bld) [Entitic vol] 6.8 fL 6.6-10.1 [facility] Platelets Auto (Bld) [#/Vol] Ordered By: Jaycob Madison on 07-31-2022 Platelets (Bld) [#/Vol] 331 10*3/uL 150-450 [facility] Protein [Mass/volume] in Ser um or PlasmaOrdered By: Jaycob Madison on 07-31-2022 Protein [Mass/Vol] 6.6 g/dL 6.1-7.9 [facility] RBC Auto (Bld) [#/Vol]Ordere d By: Jaycob Madison on 07-31-2022 RBC (Bld) [#/Vol] 5.21 10*6/uL 3.90-5.60 [facility] Serum or plasma alanine beltran otransferase measurement without P-5'-P (enzymatic activiOrdered By: Jaycob Madison on 07-31-2022 ALT No additional P-5'-P [Catalytic activity/Vol] 28 U/L 10-60 [facility] Serum or plasma albumin/glob ulin mass ratioOrdered By: Jaycob Madison on 07-31-2022 Albumin/Globulin [Mass ratio] 1.6 {ratio} [facility] Serum or plasma alkaline ivis sphatase measurement (enzymatic activity/volume)Ordered By: Jaycob Madison on 07-31-2022 ALP [Catalytic activity/Vol] 53 U/L 32-92 [facility] Serum or plasma anion gap de terminationOrdered By: Jaycob Madison on 07-31-2022 Anion gap [Moles/Vol] 11.6 mmol/L 6.0-15.0 [facility] Serum or plasma aspartate am inotransferase measurement (enzymatic activity/volume)Ordered By: Jaycob Madison on 07-31-2022 AST [Catalytic activity/Vol] 23 U/L 10-42 [facility] Serum or plasma calcium jameel urement (mass/volume)Ordered By: Jaycob Madison on 07-31-2022 Calcium [Mass/Vol] 9.5 mg/dL 8.2-10.2 [facility] Serum or plasma chloride [place] surement (moles/volume)Ordered By: Jaycob Madison on 07-31-2022 Chloride [Moles/Vol] 106 mmol/L 95-114 [facility] Serum or plasma glucose jameel urement (mass/volume)Ordered By: Jaycob Madison on 07-31-2022 Glucose [Mass/Vol] 119 mg/dL 70-100 [facility] Comment on above: ADA recommended refe rence [...] on 07-31-2022 Potassium [Moles/Vol] 4.5 mmol/L 3.5-5.1 [facility] Serum or plasma sodium measu rement (moles/volume)Ordered By: Jaycob Madiosn on 07-31-2022 Sodium [Moles/Vol] 139 mmol/L 136-146 [facility] Serum or plasma total biliru bin measurement (mass/volume)Ordered By: Jaycob Madison on 07-31-2022 Bilirubin [Mass/Vol] 0.6 mg/dL 0.3-1.2 [facility] Serum or plasma total carbon dioxide measurement (moles/volume)Ordered By: Jaycob Madison on 07-31-2022 CO2 [Moles/Vol] 25.9 mmol/L 22.0-30.0 [facility] Serum or plasma urea nitroge n measurement (mass/volume)Ordered By: Jaycob Madison on 07-31-2022 Urea nitrogen [Mass/Vol] 13 mg/dL 08-17 [facility] XR hips BI 4V adulton 2021 XR hips BI 4V adult [facility] [place] [address] XRay Report Signed Patient: Britton Powell MR#: [id number] : 1970 Acct:[id number] Age/Sex: 51 / M ADM Date: 07/31/22 Loc: XD Room: Type: [facility] Attending Dr: Jaycob Madison MD Copies to: Jaycob Madison MD Ordering Provider: Jaycob Madison MD Date of Service: 07/31/22 XR/XR hips BI 4V adult: HIP PAIN ([id number]) XR/XR lumbar spine min 4V*: LOW BACK PAIN ([id number]) XR/XR cervical spine 5V*: NECK PAIN CLINICAL [...] Cris Sykes M.D.07/31/2022 4:37 PM Dictation Location: [place] [address] Transcribed By: [facility] 07/31/22 1637 Dictated By: Cris Sykes MD 07/31/22 163 Signed By: 07/31/22 1637 Normal [facility] CT abdomen w conon 2 CT abdomen w con [facility] [place] [address] CT Scan Report Signed Patient: Britton Powell MR#: [id number] : 1970 Acct:[id number] Age/Sex: 51 / M ADM Date: 04/05/22 Loc: CT Room: Type: [facility] CLI Attending Dr: Nazario Abbott MD Ordering [...] Villegas Jr., Cecilia04/05/2022 2:49 PM Dictation Location: [place] [address] Transcribed By: [facility] 04/05/22 144 Dictated By: Pete Villegas Jr, DO 04/05/22 1447 Signed By: 04/05/22 144 [facility] 03-22-2022 L -- ---- Specimen: [id number] Received: 03/22/22 Status: OMAR Lopez Num: [id number] Spec Type: Surgical Subm Dr: Nazario Abbott MD Tissues: A Duodenum - Biopsy (DUODENUM) B Stomach - Biopsy/Polyp (ANTRUM) C Small Intestine - Biopsy/Polyp (SMALL BOWEL) D Colon Biopsy (COLON) Procedures: HE Stain/8, Gross/Micro L4/4 ---- Patient Age/Sex Location Account Attending Physician ---- Britton Powell/[facility] [id number] Nazario Abbott MD ---- SPEC NUM: [id number] RECD: 03/22/22 STATUS: OMAR LOPEZ NUM: [id number] LILIAN: 03/22/22- [facility] DR: Nazario Abbott MD ENTERED: 03/22/22 [facility] DR: CALEB TYPE: Surgical DEPT: S ORDERED: [...] No evidence of microscopic colitis ---- Specimen: [id number] Received: 03/22/22 Status: OMAR Lopez Num: [id number] Spec Type: Surgical Subm Dr: Nazario Abbott MD Tissues: A Duodenum - Biopsy (DUODENUM) B Stomach - Biopsy/Polyp (ANTRUM) C Small Intestine - Biopsy/Polyp (SMALL BOWEL) D Colon Biopsy (COLON) Procedures: HE Stain/8, Gross/Micro L4/4 ---- Patient: Britton Powell [id number] (Continued) ---- Specimen: [id number] Received: 03/22/22 (Continued) Signed (signature on file) Ila Peterson MD 03/23/22 5820 ---- Specimen: [id number] Received: 03/22/22 Status: OMAR Lopez Num: [id number] Spec Type: Surgical Subm Dr: Nazario Abbott MD Tissues: A Duodenum - Biopsy (DUODENUM) B Stomach - Biopsy/Polyp (ANTRUM) C Small Intestine - Biopsy/Polyp (SMALL BOWEL) D Colon Biopsy (COLON) Procedures: HE Stain/8, Gross/Micro L4/4 ---- Patient: Britton Powell [id number] (Continued) ---- Specimen: [id number] Received: 03/22/22 (Continued) Clinical Information Dysphagia Gross [...] findings suppor (more content not included)... Normal [facility] Bowel Disorders [place] Atypical pANCA Negative Normal Negative [facility] Comment on above: Order Comment: Reaso n for Exam Diarrhea;GERD (gastroesophageal reflux disease) Performed By: #### B OWEL CASC, CALPROTECT, ELASTASE STOOL ####[facility] ,#### CMP, CRP, THYROID SC, LACTO SWBC, CBC, ESR ####[facility] [id number] Bowel Disorders Ness Negative Normal Negative [facility] Comment on above: Order Comment: Reaso n for Exam Diarrhea;GERD (gastroesophageal reflux disease) Performed By: #### B OWEL CASC, CALPROTECT, ELASTASE STOOL ####[facility] ,#### CMP, CRP, THYROID SC, LACTO SWBC, CBC, ESR ####[facility] Ihy[address] Note Normal . [facility] Comment on above: Order Comment: Reaso n for Exam Diarrhea;GERD (gastroesophageal reflux disease) Result Comment: Sugg estive of Crohn's disease. Subsequent testing with the Crohn's Disease Prognostic Profile (888964) that includes antiglycan antibodies AMCA, ALCA, ACCA, and Ovidio may aid in the differentiation of clinical forms of CD and prognosis of disease progression. Performed at: - [facility], [place], [place] [id number] Homicide Squad Captain: Jevon Arguelles MD, Phone: [phone] PERFORMED BY: [facility] [address] [place] [address] PATHOLOGIST [employer] ILA PETERSON M.D. Performed By: #### B OWEL CASC, CALPROTECT, ELASTASE STOOL ####[facility] ,#### CMP, CRP, THYROID SC, LACTO SWBC, CBC, ESR ####[place] [id number] [address] Saccharomyces cerevisiae, IgG 27.6 High 0.0-24.9 [facility] Comment on above: Order Comment: Reaso n for Exam Diarrhea;GERD (gastroesophageal reflux disease) Result Comment: Nega tive <20.0 Equivocal 20.1 - 24.9 Positive >or= 25.0 Performed By: #### B OWEL CASC, CALPROTECT, ELASTASE STOOL ####[facility] ,#### CMP, CRP, THYROID SC, LACTO SWBC, CBC, ESR ####[place] [address] [address] C-Reactive Proteinon 022 C-Reactive Protein 2.0 mg/dL High 0.0-1.0 [facility] Comment on above: Order Comment: Reaso n for Exam Diarrhea;GERD (gastroesophageal reflux disease) Performed By: #### B OWEL CASC, CALPROTECT, ELASTASE STOOL ####[facility] ,#### CMP, CRP, THYROID SC, LACTO SWBC, CBC, ESR ####[place] [address] [address] COVID-19 FRMCon 03-20-2022 SARS-CoV-2 (COVID-19) RNA YNES+probe Ql (Unsp spec) Negative Normal Negative [facility] Comment on above: Order Comment: Healt hcare Worker?: N Result Comment: Testing for SARS-CoV-2 by RT-PCR This test was developed and its performance characteristics determined by [employer] ([employer]) and validated at the [facility]. This test has not been FDA cleared [...] is terminated or revoked sooner. PERFORMED BY: [facility] [address] [place] [address] PATHOLOGIST [employer] ILA PETERSON M.D. Performed By: #### C OVID [address] [facility] ####[facility] [id number] [place] [address] [facility] Calprotectin, Fecalon 2021 Calprotectin, Fecal 41 Normal 0-120 [facility] Comment on above: Order Comment: Reaso n for Exam Diarrhea;GERD (gastroesophageal reflux disease) Result Comment: Conc entration Interpretation Follow-Up <16 - 50 ug/g Normal None >50 -120 ug/g Borderline Re-evaluate in 4-6 weeks >120 ug/g Abnormal Repeat as clinically indicated Performed at: - [facility] [address] [id number] Homicide Squad Captain: Jevon Arguelles MD, Phone: [phone] PERFORMED BY: [facility] [address] [place] [id number] PATHOLOGIST [employer] ILA PETERSON M.D. Performed By: #### B OWEL CASC, CALPROTECT, ELASTASE STOOL ####[facility] ,#### CMP, CRP, THYROID SC, LACTO SWBC, CBC, ESR ####[facility] [id number] Complete Blood Count Auto Di ffon 03-20-2022 Basophils (Bld) [#/Vol] 0.0 10*3/uL Normal 0.0-0.2 [facility] Comment on above: Order Comment: Reaso n for Exam Diarrhea;GERD (gastroesophageal reflux disease) Performed By: #### B OWEL CASC, CALPROTECT, ELASTASE STOOL #### [facility] , #### CMP, CRP, THYROID SC, LACTO SWBC, CBC, ESR #### [facility] [address] Basophils/100 WBC (Bld) 0.6 % Normal . [facility] Comment on above: Order Comment: Reaso n for Exam Diarrhea;GERD (gastroesophageal reflux disease) Performed By: #### B OWEL CASC, CALPROTECT, ELASTASE STOOL #### [facility] , #### CMP, CRP, THYROID SC, LACTO SWBC, CBC, ESR #### [facility] [address] Eosinophils (Bld) [#/Vol] 0.1 10*3/uL Normal 0.0-0.45 [facility] Comment on above: Order Comment: Reaso n for Exam Diarrhea;GERD (gastroesophageal reflux disease) Performed By: #### B OWEL CASC, CALPROTECT, ELASTASE STOOL #### [facility] , #### CMP, CRP, THYROID SC, LACTO SWBC, CBC, ESR #### [facility] [address] Eosinophils/100 WBC (Bld) 1.5 % Normal . [facility] Comment on above: Order Comment: Reaso n for Exam Diarrhea;GERD (gastroesophageal reflux disease) Performed By: #### B OWEL CASC, CALPROTECT, ELASTASE STOOL #### [facility] , #### CMP, CRP, THYROID SC, LACTO SWBC, CBC, ESR #### [facility] [address] Erythrocyte distribution width (RBC) [Ratio] 13.3 % Normal 12.0-14.8 [facility] Comment on above: Order Comment: Reaso n for Exam Diarrhea;GERD (gastroesophageal reflux disease) Performed By: #### B OWEL CASC, CALPROTECT, ELASTASE STOOL #### [facility] , #### CMP, CRP, THYROID SC, LACTO SWBC, CBC, ESR #### [address] Hematocrit (Bld) [Volume fraction] 42.8 % Normal 38.8-50.0 [facility] Comment on above: Order Comment: Reaso n for Exam Diarrhea;GERD (gastroesophageal reflux disease) Performed By: #### B OWEL CASC, CALPROTECT, ELASTASE STOOL #### [facility] , #### CMP, CRP, THYROID SC, LACTO SWBC, CBC, ESR #### [address] Hemoglobin (Bld) [Mass/Vol] 14.3 g/dL Normal 13.0-17.0 [facility] Comment on above: Order Comment: Reaso n for Exam Diarrhea;GERD (gastroesophageal reflux disease) Performed By: #### B OWEL CASC, CALPROTECT, ELASTASE STOOL #### [facility] , #### CMP, CRP, THYROID SC, LACTO SWBC, CBC, ESR #### [address] Lymphocytes (Bld) [#/Vol] 1.4 10*3/uL Normal 1.00-4.8 [facility] Comment on above: Order Comment: Reaso n for Exam Diarrhea;GERD (gastroesophageal reflux disease) Performed By: #### B OWEL CASC, CALPROTECT, ELASTASE STOOL #### [facility] , #### CMP, CRP, THYROID SC, LACTO SWBC, CBC, ESR #### [address] Lymphocytes/100 WBC (Bld) 28.5 % Normal . [facility] Comment on above: Order Comment: Reaso n for Exam Diarrhea;GERD (gastroesophageal reflux disease) Performed By: #### B OWEL CASC, CALPROTECT, ELASTASE STOOL #### [facility] , #### CMP, CRP, THYROID SC, LACTO SWBC, CBC, ESR #### [facility] [address] [place] [address] MCH (RBC) [Entitic mass] 28.6 pg Normal 27.5-35.2 [facility] Comment on above: Order Comment: Reaso n for Exam Diarrhea;GERD (gastroesophageal reflux disease) Performed By: #### B OWEL CASC, CALPROTECT, ELASTASE STOOL #### [facility] , #### CMP, CRP, THYROID SC, LACTO SWBC, CBC, ESR #### [address] MCV (RBC) [Entitic vol] 85.3 fL Normal 83.5-101 F [facility] Comment on above: Order Comment: Reaso n for Exam Diarrhea;GERD (gastroesophageal reflux disease) Performed By: #### B OWEL CASC, CALPROTECT, ELASTASE STOOL #### [facility] , #### CMP, CRP, THYROID SC, LACTO SWBC, CBC, ESR #### [address] Mean Corpuscular HGB Conc 33.5 g/dL Normal 32.5-35.6 [facility] Comment on above: Order Comment: Reaso n for Exam Diarrhea;GERD (gastroesophageal reflux disease) Performed By: #### B OWEL CASC, CALPROTECT, ELASTASE STOOL #### [facility] , #### CMP, CRP, THYROID SC, LACTO SWBC, CBC, ESR #### [facility] [address] [place] [address] Monocytes (Bld) [#/Vol] 0.4 10*3/uL Normal 0.0-0.8 [facility] Comment on above: Order Comment: Reaso n for Exam Diarrhea;GERD (gastroesophageal reflux disease) Performed By: #### B OWEL CASC, CALPROTECT, ELASTASE STOOL #### [facility] , #### CMP, CRP, THYROID SC, LACTO SWBC, CBC, ESR #### [facility] [address] [place] [address] [place] Monocytes/100 WBC (Bld) 8.5 % Normal . [facility] Comment on above: Order Comment: Reaso n for Exam Diarrhea;GERD (gastroesophageal reflux disease) Performed By: #### B OWEL CASC, CALPROTECT, ELASTASE STOOL #### [facility] , #### CMP, CRP, THYROID SC, LACTO SWBC, CBC, ESR #### [facility] [address] [place] [address] [place] Neutrophils (Bld) [#/Vol] 2.9 10*3/uL Normal 1.8-7.7 [facility] Comment on above: Order Comment: Reaso n for Exam Diarrhea;GERD (gastroesophageal reflux disease) Performed By: #### B OWEL CASC, CALPROTECT, ELASTASE STOOL #### [facility] , #### CMP, CRP, THYROID SC, LACTO SWBC, CBC, ESR #### [facility] [address] [place] [address] [place] Neutrophils/100 WBC (Bld) 60.9 % Normal . [facility] Comment on above: Order Comment: Reaso n for Exam Diarrhea;GERD (gastroesophageal reflux disease) Performed By: #### B OWEL CASC, CALPROTECT, ELASTASE STOOL #### [facility] , #### CMP, CRP, THYROID SC, LACTO SWBC, CBC, ESR #### [facility] [address] [place] [address] [place] Nucleated RBC/100 WBC (Bld) [Ratio] 0.2 % Normal 0-0.5 [facility] Comment on above: Order Comment: Reaso n for Exam Diarrhea;GERD (gastroesophageal reflux disease) Performed By: #### B OWEL CASC, CALPROTECT, ELASTASE STOOL #### [facility] , #### CMP, CRP, THYROID SC, LACTO SWBC, CBC, ESR #### [facility] [address] Platelet mean volume (Bld) [Entitic vol] 6.8 fL Normal 6.6-10.1 [facility] Comment on above: Order Comment: Reaso n for Exam Diarrhea;GERD (gastroesophageal reflux disease) Performed By: #### B OWEL CASC, CALPROTECT, ELASTASE STOOL #### [facility] , #### CMP, CRP, THYROID SC, LACTO SWBC, CBC, ESR #### [facility] [address] [place] [id number] [facility] Platelets (Bld) [#/Vol] 283 10*3/uL Normal 150-450 [facility] Comment on above: Order Comment: Reaso n for Exam Diarrhea;GERD (gastroesophageal reflux disease) Performed By: #### B OWEL CASC, CALPROTECT, ELASTASE STOOL #### [facility] , #### CMP, CRP, THYROID SC, LACTO SWBC, CBC, ESR #### [facility] [address] RBC (Bld) [#/Vol] 5.02 10*6/uL Normal 3.90-5.60 [facility] Comment on above: Order Comment: Reaso n for Exam Diarrhea;GERD (gastroesophageal reflux disease) Performed By: #### B OWEL CASC, CALPROTECT, ELASTASE STOOL #### [facility] , #### CMP, CRP, THYROID SC, LACTO SWBC, CBC, ESR #### [address] WBC (Bld) [#/Vol] 4.8 10*3/uL Normal 4.5-11.0 [facility] Comment on above: Order Comment: Reaso n for Exam Diarrhea;GERD (gastroesophageal reflux disease) Performed By: #### B OWEL CASC, CALPROTECT, ELASTASE STOOL #### [facility] , #### CMP, CRP, THYROID SC, LACTO SWBC, CBC, ESR #### [facility] [address] [place] [id number] [facility] Comprehensive Metabolic Pane willi 03-20-2022 Albumin [Mass/Vol] 3.8 g/dL Normal 3.2-5.5 [facility] Comment on above: Order Comment: Reaso n for Exam Diarrhea;GERD (gastroesophageal reflux disease) Performed By: #### B OWEL CASC, CALPROTECT, ELASTASE STOOL #### [facility] , #### CMP, CRP, THYROID SC, LACTO SWBC, CBC, ESR #### [facility] [address] [place] [id number] [facility] Albumin/Globulin [Mass ratio] 1.5 {ratio} Normal [facility] Comment on above: Order Comment: Reaso n for Exam Diarrhea;GERD (gastroesophageal reflux disease) Performed By: #### B OWEL CASC, CALPROTECT, ELASTASE STOOL #### [facility] , #### CMP, CRP, THYROID SC, LACTO SWBC, CBC, ESR #### [facility] [address] [place] [id number] [facility] ALP [Catalytic activity/Vol] 57 U/L Normal 32-92 [facility] Comment on above: Order Comment: Reaso n for Exam Diarrhea;GERD (gastroesophageal reflux disease) Performed By: #### B OWEL CASC, CALPROTECT, ELASTASE STOOL #### [facility] , #### CMP, CRP, THYROID SC, LACTO SWBC, CBC, ESR #### [facility] [address] ALT [Catalytic activity/Vol] 34 U/L Normal 10-60 [facility] Comment on above: Order Comment: Reaso n for Exam Diarrhea;GERD (gastroesophageal reflux disease) Performed By: #### B OWEL CASC, CALPROTECT, ELASTASE STOOL #### [facility] , #### CMP, CRP, THYROID SC, LACTO SWBC, CBC, ESR #### [facility] [address] [place] [id number] [place] AST [Catalytic activity/Vol] 27 U/L Normal 10-42 [facility] Comment on above: Order Comment: Reaso n for Exam Diarrhea;GERD (gastroesophageal reflux disease) Performed By: #### B OWEL CASC, CALPROTECT, ELASTASE STOOL #### [facility] , #### CMP, CRP, THYROID SC, LACTO SWBC, CBC, ESR #### [facility] [address] Bilirubin [Mass/Vol] 0.4 mg/dL Normal 0.3-1.2 [facility] Comment on above: Order Comment: Reaso n for Exam Diarrhea;GERD (gastroesophageal reflux disease) Performed By: #### B OWEL CASC, CALPROTECT, ELASTASE STOOL #### [facility] , #### CMP, CRP, THYROID SC, LACTO SWBC, CBC, ESR #### [facility] [address] Calcium [Mass/Vol] 9.0 mg/dL Normal 8.2-10.2 [facility] Comment on above: Order Comment: Reaso n for Exam Diarrhea;GERD (gastroesophageal reflux disease) Performed By: #### B OWEL CASC, CALPROTECT, ELASTASE STOOL #### [facility] , #### CMP, CRP, THYROID SC, LACTO SWBC, CBC, ESR #### [facility] [address] [place] [id number] [facility] Chloride [Moles/Vol] 103 mmol/L Normal 95-114 [facility] Comment on above: Order Comment: Reaso n for Exam Diarrhea;GERD (gastroesophageal reflux disease) Performed By: #### B OWEL CASC, CALPROTECT, ELASTASE STOOL #### [facility] , #### CMP, CRP, THYROID SC, LACTO SWBC, CBC, ESR #### [facility] [address] [place] [id number] [facility] CO2 [Moles/Vol] 25.8 mmol/L Normal 22.0-30.0 [facility] Comment on above: Order Comment: Reaso n for Exam Diarrhea;GERD (gastroesophageal reflux disease) Performed By: #### B OWEL CASC, CALPROTECT, ELASTASE STOOL #### [facility] , #### CMP, CRP, THYROID SC, LACTO SWBC, CBC, ESR #### [facility] [address] [place] [address] Creatinine [Mass/Vol] 1.03 mg/dL Normal 0.64-1.27 [facility] Comment on above: Order Comment: Reaso n for Exam Diarrhea;GERD (gastroesophageal reflux disease) Performed By: #### B OWEL CASC, CALPROTECT, ELASTASE STOOL #### [facility] , #### CMP, CRP, THYROID SC, LACTO SWBC, CBC, ESR #### [facility] [address] [place] [address] Estimated GFR ( Lucy > 60 [facility] Comment on above: Order Comment: Reaso n for Exam Diarrhea;GERD (gastroesophageal reflux disease) Result Comment: GFR estimated reference range: According to KDOQI guidelines, <60 ml/min/1.73m2 is sufficient to diagnose a patient with chronic kidney disease. Performed By: #### B OWEL CASC, CALPROTECT, ELASTASE STOOL #### [facility] , #### CMP, CRP, THYROID SC, LACTO SWBC, CBC, ESR #### [facility] [address] [place] [address] Estimated GFR (Non- Am > 60 [facility] Comment on above: Order Comment: Reaso n for Exam Diarrhea;GERD (gastroesophageal reflux disease) Performed By: #### B OWEL CASC, CALPROTECT, ELASTASE STOOL #### [facility] , #### CMP, CRP, THYROID SC, LACTO SWBC, CBC, ESR #### [facility] [address] [place] [address] Globulin (S) [Mass/Vol] 2.5 g/dL Normal [facility] Comment on above: Order Comment: Reaso n for Exam Diarrhea;GERD (gastroesophageal reflux disease) Performed By: #### B OWEL CASC, CALPROTECT, ELASTASE STOOL #### [facility] , #### CMP, CRP, THYROID SC, LACTO SWBC, CBC, ESR #### [facility] [address] Glucose [Mass/Vol] 88 mg/dL Normal 70-100 [facility] Comment on above: Order Comment: Reaso n for Exam Diarrhea;GERD (gastroesophageal reflux disease) Result Comment: [facility] Glucose Reference Range is dependent on time and content of last meal. Glucose of more than 200 mg/dL in a nonstressed, ambulatory subject supports the diagnosis of Diabetes Mellitus. ADA recommended reference range Performed By: #### B OWEL CASC, CALPROTECT, ELASTASE STOOL #### [facility] , #### CMP, CRP, THYROID SC, LACTO SWBC, CBC, ESR #### [facility] [address] Potassium [Moles/Vol] 4.0 mmol/L Normal 3.5-5.1 [facility] Comment on above: Order Comment: Reaso n for Exam Diarrhea;GERD (gastroesophageal reflux disease) Performed By: #### B OWEL CASC, CALPROTECT, ELASTASE STOOL #### [facility] , #### CMP, CRP, THYROID SC, LACTO SWBC, CBC, ESR #### [facility] [address] Protein [Mass/Vol] 6.3 g/dL Normal 6.1-7.9 [facility] Comment on above: Order Comment: Reaso n for Exam Diarrhea;GERD (gastroesophageal reflux disease) Performed By: #### B OWEL CASC, CALPROTECT, ELASTASE STOOL #### [facility] , #### CMP, CRP, THYROID SC, LACTO SWBC, CBC, ESR #### [facility] [address] [place] [address] [place] Sodium [Moles/Vol] 139 mmol/L Normal 136-146 [facility] Comment on above: Order Comment: Reaso n for Exam Diarrhea;GERD (gastroesophageal reflux disease) Performed By: #### B OWEL CASC, CALPROTECT, ELASTASE STOOL #### [facility] , #### CMP, CRP, THYROID SC, LACTO SWBC, CBC, ESR #### [facility] [address] [place] [address] Urea nitrogen [Mass/Vol] 12 mg/dL Normal 9-23 [facility] Comment on above: Order Comment: Reaso n for Exam Diarrhea;GERD (gastroesophageal reflux disease) Performed By: #### B OWEL CASC, CALPROTECT, ELASTASE STOOL #### [facility] , #### CMP, CRP, THYROID SC, LACTO SWBC, CBC, ESR #### [facility] [address] [place] [address] Erythrocyte Sedimentation Ra tracy 03-20-2022 ESR (Bld) [Velocity] 8 mm/h Normal 0-19 [facility] Comment on above: Order Comment: Reaso n for Exam Diarrhea;GERD (gastroesophageal reflux disease) Result Comment: PERF ORMED BY: [place] [address] PATHOLOGIST [employer] ILA PETERSON M.D. Performed By: #### B OWEL CASC, CALPROTECT, ELASTASE STOOL #### [facility] , #### CMP, CRP, THYROID SC, LACTO SWBC, CBC, ESR #### [facility] [address] [place] [address] Lactoferrin, Stool WBCon Lactoferrin, Stool WBC Reason for Exam Diarrhea;GERD (gastroesophageal reflux disease) Stool Reason for Exam: Diarrhea;GERD (gastroesophageal reflux disease) : Stool LACTOFERRIN Negative for Fecal Lactoferrin Immune suppression may cause reduced WBC counts, leading to a false negative result. Reference range = Negative PERFORMED BY: [place] [address] [place] [address] PATHOLOGIST [employer] ILA PETERSON M.D. [facility] Comment on above: Performed By: #### B OWEL CASC, CALPROTECT, ELASTASE STOOL ####[facility] ,#### CMP, CRP, THYROID SC, LACTO SWBC, CBC, ESR ####[place] [id number] [address] Pancreatic Elastase, Stoolon 03-20-2022 Pancreatic Elastase, Stool 132 Low >200 [facility] Comment on above: Order Comment: Reaso n for Exam Diarrhea;GERD (gastroesophageal reflux disease) Result Comment: Resu lt Units: ug Elast./g Severe Pancreatic Insufficiency: <100 Moderate Pancreatic Insufficiency: 100 - 200 Normal: >200 Performed at: [address] [id number] [employer]: Jevon Arguelles MD, Phone: [phone] Performed By: #### B OWEL CASC, CALPROTECT, ELASTASE STOOL ####[facility] ,#### CMP, CRP, THYROID SC, LACTO SWBC, CBC, ESR ####[place] [address] THYROID SCREENon 03-20-2022 Free T4 [Mass/Vol] 0.72 ng/dL Normal 0.61-1.12 [facility] Comment on above: Order Comment: Reaso n for Exam Diarrhea;GERD (gastroesophageal reflux disease) Performed By: #### B OWEL CASC, CALPROTECT, ELASTASE STOOL ####[facility] ,#### CMP, CRP, THYROID SC, LACTO SWBC, CBC, ESR ####[place] [address] TSH Qn 1.15 m[IU]/L Normal 0.45-5.33 [facility] Comment on above: Order Comment: Reaso n for Exam Diarrhea;GERD (gastroesophageal reflux disease) Result Comment: PERF ORMED BY: [facility] [address] [place] [address] PATHOLOGIST [employer] ILA PETERSON M.D. Performed By: #### B OWEL CASC, CALPROTECT, ELASTASE STOOL ####[facility] ,#### CMP, CRP, THYROID SC, LACTO SWBC, CBC, ESR ####[facility] [id number] [place] [id number] [facility] CT CHEST WO CONon 08-21-2019 CT CHEST WO CON Patient: BRITTON POWELL Exam Date: 08/21/2019 : 1970 Gender:M Ordering : DR KP TSANG Admission #: [id number] Family : Order #: [id number] CLICK HERE TO VIEW EXAM RADIOLOGY REPORT [...] Crespo M.D. on 08/21/2019 at 10:32 Normal [facility] XR T-SPINE 3 VIEWSon 019 XR T-SPINE 3 VIEWS Patient: BRITTON POWELL Exam Date: 08/21/2019 : 1970 Gender:M Ordering : DR KP TSANG Admission #: [id number] Family : Order #: [id number] CLICK HERE TO VIEW EXAM RADIOLOGY REPORT [...] Crespo M.D. on 08/21/2019 at 10:04 Normal [facility] Vital Signs Date Time Vital Sign Value Performing Clinician Facility 04-23-2023 14:00-0400 Body height 177.8 cm Nazario Abbott Other [facility] 04-23-2023 14:00-0400 Body mass index (BMI) [Ratio] 26.97 kg/m2 Nazario Abbott Other [facility] 04-23-2023 14:00-0400 Body weight 85.28 kg Nazario Abbott Other [facility] 04-23-2023 14:00-0400 Diastolic blood pressure 91 mm[Hg] Nazario Abbott Other [facility] 04-23-2023 14:00-0400 Systolic blood pressure 137 mm[Hg] Nazario Abbott Other [facility] 10-23-2022 15:45-0500 Body height 177.8 cm Nazario Abbott Other [facility] 10-23-2022 15:45-0500 Body mass index (BMI) [Ratio] 26.97 kg/m2 Nazario Abbott Other [facility] 10-23-2022 15:45-0500 Body weight 85.28 kg Nazario Abbott Other [facility] 08-21-2022 14:00-0400 Body height 177.8 cm Nazario Abbott Other [facility] 08-21-2022 14:00-0400 Body mass index (BMI) [Ratio] 26.69 kg/m2 Nazario Abbott Other [facility] 08-21-2022 14:00-0400 Body weight 84.37 kg Nazario Abbott Other [facility] 03-06-2022 15:15-0400 Body height 177.8 cm Nazario Abbott Other [facility] 03-06-2022 15:15-0400 Body mass index (BMI) [Ratio] 27.26 kg/m2 Nazario Abbott Other [facility] 03-06-2022 15:15-0400 Body weight 86.18 kg Nazario Abbott Other [facility] 03-06-2022 15:15-0400 Diastolic blood pressure 87 mm[Hg] Nazario Abbott Other [facility] 03-06-2022 15:15-0400 Systolic blood pressure 147 mm[Hg] Nazario Abbott Other [facility] Other Encounters Encounter Date Encounter Type Care Provider Facility Start: 04-23-2023 End: 04-23-2023 ambulatory Nazario Abbott Other [facility] Start: 04-23-2023 Office outpatient visit 15 minutes Nazario Milena [facility] Start: 10-29-2022 End: 10-29-2022 ambulatory Nazario Abbott Other [facility] Start: 10-29-2022 Telephone encounter Nazario Noe estrella [facility] Start: 10-25-2022 End: 10-25-2022 ambulatory Kp Tsang Facility:[facility] Start: 10-25-2022 End: 10-25-2022 ambulatory MD Kp Tsang Work Phone: [facility] Work Phone: Start: 10-25-2022 End: 10-25-2022 Patient encounter procedure MD Kp Tsang Work Phone: [facility] [place] Start: 10-23-2022 End: 10-23-2022 ambulatory Nazario Milena Other [facility] Start: 10-23-2022 Office outpatient visit 25 minutes Nazario Abbott [facility] Start: 08-24-2022 End: 08-24-2022 ambulatory Kp Tsang Facility:[facility] Start: 08-24-2022 End: 08-24-2022 Patient encounter procedure MD Kp Tsang Work Phone: [facility] [place] Start: 08-21-2022 End: 08-21-2022 ambulatory Nazario Milena Other [facility] Start: 08-21-2022 Office outpatient visit 15 minutes Nazario Abbott [facility] Start: 07-31-2022 End: 07-31-2022 ambulatory Kp Tsang Facility:[facility] Start: 07-31-2022 End: 07-31-2022 Patient encounter procedure MD Kp Tsang Work Phone: [facility] Start: 04-05-2022 End: 04-05-2022 ambulatory Kp Tsang Facility:[facility] Start: 03-28-2022 End: 03-28-2022 ambulatory Nazario Abbott Other [facility] Start: 03-28-2022 Telephone encounter Nazario Liu ck [facility] Start: 03-22-2022 End: 03-22-2022 ambulatory Nazario Abbott Facility:[facility] Start: 03-20-2022 End: 03-20-2022 ambulatory Nazario Abbott Facility:[facility] Start: 03-06-2022 End: 03-06-2022 ambulatory Nazario Abbott Other [facility] Start: 03-06-2022 Office outpatient ne w 45 minutes Nazario Abbott [facility] Start: 08-21-2019 End: 08-22-2019 Patient encounter procedure KP Holly TRINH Facility:[facility] Procedures Date Procedure Procedure Detail Performing [...] protein [ Mass/volume] in Serum or Plasma [facility] Work Phone: Trypsin [Mass/volume] in Serum or Plasma [facility] Work Phone: Immunizations Immunization Date Immunization Notes Care Provider [facility] 01-25-2021 COVID-19 Natalya Mathur ([employer]) MD Kp Tsang Work Phone: [facility] 01-04-2021 COVID-19 Natalya Mathur (Pf[employer]) MD Kp Tsang Work Phone: [facility] Payers Date Payer Category Payer Self-pay [id number] 1970 Unknown [id number] 2.16.84 [id number] 1961 Unknown [id number] Unknown [id number] 2.16.8 [id number] Unknown [id number] 2.16.8 [id number] Unknown [id number] 2.16.8 [id number] Unknown [id number] 2.16.8 [id number] Unknown [id number] 2.16.8 [id number] Unknown [id number] 2.16.8 [id number] Unknown [id number] 2.16.8 [id number] Social History Date Type Detail Facility Sex Assigned At [facility] Start: 03-22-2022 End: 03-22-2022 Tobacco smoking status [facility] Never smoked tobacco (finding) [facility] Start: 1970 Sex Assigned At Male F [facility] Evaluation note 04-23-2023 Note Date & Type [...] is has occasional diarrhea RTO 1 year [facility] Evaluation note 10-23-2022 Note Date & [...] Sep, Irritable bowel syndrome (ICD-10 - K58.9) [facility] Evaluation note 08-21-2022 Note Date & Type Note Facility 08-21-2022 Evaluation note Encounter Date Diagnosis Assessment Notes Jul, Diarrhea (ICD-10 - R19.7) Jul, GERD (gastroesophagea l reflux disease) (ICD-10 - K21.9) CONTINUE OMEPRAZOLE 20 MG DAILY Jul, Antral gastritis (ICD-10 - K29.50) Jul, Hiatal hernia (ICD-10 - K44.9) Jul, Exocrine pancreatic insufficiency (ICD-10 - K86.81) RTO 2 MONTHS [facility] Other Evaluation note 03-28-2022 Note Date & Type Note Facility 03-28-2022 Evaluation note Encounter Date Diagnosis Assessment Notes March, Pancreatic insufficiency (ICD-10 - K86.89) [facility] Evaluation note 03-06-2022 Note Date & Type Note Facility 03-06-2022 Evaluation note Encounter Date Diagnosis Assessment Notes Feb, Diarrhea (ICD-10 - R19.7) Labs and stool studies as indicated above Colonoscopy Start low fodmap diet. Education handout given to patient Feb, GERD (gastroesopha geal reflux disease) (ICD-10 - K21.9) Continue Omeprazole EGD [facility] [employer] Other Evaluation note Note Date & Type Note Facility Evaluation note No assessment information availa ble [facility] Work Phone: Evaluation note Note Date & Type Note Facility Evaluation note No Information [facility] [employer] Other History general Narrative - Reported Note Date & Type Note Facility History general Narrative - Reported Type Medical History GERD Surgical History left wrist [facility] Other Reason for visit Narrative Note Date & Type Note Facility Reason for visit Narrative PATIENT REFFE RED BY [facility] FOR IBS W/DIARRHEA, (REFERRAL NOTE RECEIVED) [place] [facility] Other Summary Purpose Family History Relationship Condition [...] content) DATE CREATED AUTHOR 08/28/2019 [facility] DATE CREATED AUTHOR AUTHOR'S ORGANIZ ATION 10/26/2022 [facility] REASON FOR VISIT (unrecogniz ed section [...] BE BASED ON THE PRIMARY CLINICAL RECORDS. [facility] provides no warranty or guarantee of the accuracy or completeness of information in this document.
[2024-08-13 09:55] LABS: Alanine Aminotransferase 28 U/L (16-63); Albumin Globulin Ratio 1.2; Albumin Level 3.9 g/dL (3.4-5.0); Alkaline Phosphatase 64 U/L (46-116); Aspartate Amino Transferase 19 U/L (15-37); BUN Creatinine Ratio 11.3; Bilirubin Total 0.5 mg/dL (0.2-1.0); Calcium 9.2 mg/dL (8.5-10.1); Carbon Dioxide 31.9 mmol/L (21.0-32.0); Chloride 105 mmol/L (98-107); Chol HDL Ratio 4.6; Cholesterol 246 mg/dL (<=200); Estimated GFR (African America >60 (>=60); Estimated GFR (Non-African Ame >60 (>=60); Globulin 3.2 g/dL; Glucose 99 mg/dL (74-106); HDL Cholesterol 54 mg/dL (40-60); Potassium 3.9 mmol/L (3.5-5.1); Sodium 142 mmol/L (136-145); Total Protein 7.1 g/dL (6.4-8.2); Triglycerides 150 mg/dL (<=150)
== END 2024-08-13 09:11 | disposition home or self-care (01) ==
LOC: LAB 09:11
PROVIDERS: PCP Family Medicine; Visit Provider Family Medicine
DX: Z00.00 Encounter for general adult medical examination without abnormal findings (principal)
CPT/HCPCS: 36415; 80053; 80061; 85025